=== PATIENT | male | born 1940 | race Caucasian/White ===

== ENCOUNTER 2019-07-07 13:11 | Outpatient (RCR) | payer OTHER, SELFPAY | END 2019-07-11 23:59 | disposition home or self-care (01) | LOC: SPT 13:11 | PROVIDERS: Family Provider Internal Medicine; PCP Internal Medicine; Referring Provider Internal Medicine; Visit Provider Internal Medicine | DX: M51.36 Other intervertebral disc degeneration, lumbar region (principal) | CPT/HCPCS: 97110; 97162 ==

== ENCOUNTER 2019-07-14 06:00 | Outpatient (RCR) | payer OTHER, SELFPAY | END 2019-08-09 23:59 | disposition home or self-care (01) | LOC: SPT 06:00 | PROVIDERS: Family Provider Internal Medicine; PCP Internal Medicine; Referring Provider Internal Medicine; Visit Provider Internal Medicine | DX: M51.36 Other intervertebral disc degeneration, lumbar region (principal) | CPT/HCPCS: 97110 ==

== ENCOUNTER 2019-08-10 06:00 | Outpatient (RCR) | payer OTHER, SELFPAY | END 2019-09-09 23:59 | disposition home or self-care (01) | LOC: SPT 06:00 | PROVIDERS: Family Provider Internal Medicine; PCP Internal Medicine; Referring Provider Internal Medicine; Visit Provider Internal Medicine | DX: M51.36 Other intervertebral disc degeneration, lumbar region (principal) | CPT/HCPCS: 97110 ==

== ENCOUNTER 2022-09-21 21:01 | Inpatient (IN) | payer OTHER, SELFPAY ==
[2022-09-21 21:10] VITALS: BP 130/65; PULSE 55; RESP 18; TEMP 37.1; O2SAT 95; BMI 45.6
--- NOTE | 2022-09-21 21:11 | ED_ITS ---
HPI - Syncope General: Chief Complaint: Syncope Stated Complaint: SYNCOPAL EPISODE Time Seen by Provider: 09/21/22 21:10 History of Present Illness: Mr. Sampson is an 82-year-old gentleman on Eliquis presenting to the emergency department for syncopal episode. He reports over the past few days having a atraumatic bruise on his inner thigh of unclear etiology but otherwise feels nor mal. He was in the shower and felt lightheaded. He laid down in the shower and lost consciousness. EMS found the patient to be diaphoretic and pale. He does also endorse some chest pain off and on. Intensity symptoms is moderate. Course has persisted. Denies frequent similar episodes in the past. No other specific changes in health, exacerbating, or alleviating factors identified. Onset (ago): minute(s) Prodromal symptoms: lightheaded Witnessed: No Injuries sustained associated with event: none Associated symptoms: Reports chest pain, lightheadedness and other Review of Systems General: Reports: 10 or more systems reviewed and unremarkable except in HPI and below Card: Reports: chest pain and lightheadedness PFS ED PFSH: Medical History A-fib CAD (coronary artery disease) Diabetes Hypertension Surgical History Hx of CABG Social History Smoking and tobacco status: never smoked Physical Exam Const: COMMON NORMALS: alert GENERAL APPEARANCE: cooperative and well developed HENMT: COMMON NORMALS: normocephalic and atraumatic HEAD & SCALP: normocephalic and atraumatic OTHER: No salazar signs or raccoon eyes. No hemotympanum. No otorrhea or rhinorrhea. Jaw alignment normal. Dentition baseline. No obvious bony step-offs. No septal hematoma. No evidence of ocular entrapment. Eye: COMMON NORMALS: conjunctivae normal CONJUNCTIVA: Yes conjunctivae normal SCLERA: sclerae normal Neck/C-Spine: COMMON NORMALS: supple GENERAL: Yes trachea midline Resp: COMMON NORMALS: clear to auscultation bilaterally EFFORT & INSPECTION: Yes able to speak in complete sentences AUSCULTATION: clear to auscultation bilaterally Cardio: RATE: bradycardic RHYTHM: abnormal rhythm irregularly irregular GI: COMMON NORMALS: Soft to palpation PALPATION: Yes Soft to palpation and No Tenderness to palpation present (GI) Extremity: NARRATIVE EXTREMITY EXAM: Medial right thigh ecchymosis GENERAL: Yes normal exam except as noted and No edema Neuro: COMMON NORMALS: moves all extremities SENSORIUM/ORIENTATION: Yes alert and No Orientation impaired Psych: COMMON NORMALS: mental status grossly normal and Normal thought process present THOUGHT PROCESS: Normal thought process present Course Vital Signs: Vital signs: Vital Signs Temperature 98.5 F 09/28/22 12:00 Pulse Rate 73 09/28/22 12:00 Respiratory Rate 15 09/28/22 12:00 Blood Pressure 143/78 09/28/22 12:00 Pulse Oximetry 95 09/28/22 12:00 Oxygen Delivery Me thod Room Air 09/28/22 12:00 Oxygen Flow Rate 2 09/27/22 19:39 MDM - Syncope Medical Decision Making 82-year-old male presenting due to syncopal episode and generalized weakness with intermittent lightheadedness. I did exam performed. He is nontoxic. EKG demonstrates atrial fibrillation with bradycardia, nonspecific interventricular conduction delay, no STEMI. Labs with minimal leukocytosis, normal hemoglobin and platelet count. Metabolic panel with mild hypokalemia and elevated creatinine likely baseline. Urinalysis pending. CT head with no acute traumatic injury. . No acute cervical fracture. Chronic findings discussed. Chest x-ray with no lobar consolidation or pneumothorax. Pelvis x-ray negative for fracture. No obstructing pathology identified on renal ultrasound. Patient treated with IV fluid bolus. Most likely allergy patient's symptoms is unspecified chest pain and a AFIA with syncope. The results of ED evaluation were discussed with the patient including plan for admission due to requirement for level of care not available if discharged to prevent significant worsening/deterioration. Patient agreeable with plan. Discussed with hospitalist service who was agreeable to admit patient. Medical Records I reviewed the patient's medical records. Lab Data I reviewed the patient's lab results. 09/28/22 04:09 09/28/22 04:09 Radiology Impressions Cervical Spine CT 09/21/22 21:32 IMPRESSION: No acute spine fracture-subluxation. Multilevel disc disease and chronic endplate/facet disease with spondylosis as described above. No significant central canal stenosis related to osseous elements. Head CT 09/21/22 21:32 IMPRESSION: 1. Nonspecific white matter changes as described which may be chronic. However clinical correlation is needed. Otherwise comparison prior study/follow-up exam may be helpful. 2. No acute intracranial findings otherwise. 3. Sinus findings as above. Hip/Pelvis X-Ray 09/21/22 21:32 IMPRESSION: 1. No acute findings. 2. If there is a strong clinical concern for an occult fracture, followup exam or CT/MRI correlation may also be considered. Renal Ultrasound 09/21/22 23:24 IMPRESSION: 1. Small right kidney with renal cortical thinning. 2. Bilateral simple renal cysts. 3. Nonobstructing 6.6 mm left renal calculus. 4. The patient was unable void there in the current examination. Aorta w/Runoff CTA 09/24/22 10:54 IMPRESSION: 1. Multi-vessel atherosclerotic disease with regions stenosis and occlusion as described in detail above. 2. Mild splenomegaly. 3. Colonic constipation is present. 4. Atrophic right kidney with scarring. Indeterminate cystic lesion at the lateral aspect of the right kidney midpole measures 2.4 cm in the transverse dimension and is stable from the prior study. Soft Tissue Ultrasound 09/25/22 17:00 IMPRESSION: 1. Approximate 3.5 x 5.5 x 11.5 cm hematoma in the right adductor longus muscle. In retrospect, this is unchanged or slightly smaller than on the CTA performed on 09/24/2022. Chest X-Ray 09/25/22 17:18 IMPRESSION: No acute findings. Laboratory Results WBC 10.1 10^3/uL (4.0-10.0) H 09/21/22 21:45 RBC 4.64 10^6/uL (4.1-5.3) 09/21/22 21:45 Hgb 13.7 g/dL (11.7-16.6) 09/21/22 21:45 Hct 42.7 % (42.0-52.0) 09/21/22 21:45 MCV 92.0 fl (80-94) 09/21/22 21:45 MCH 29.5 pg (28.0-34.0) 09/21/22 21:45 MCHC 32.1 g/dL (30.0-36.0) 09/21/22 21:45 RDW 14.8 % (12.1-15.1) 09/21/22 21:45 Plt Count 184 10^3/cmm (130-400) 09/21/22 21:45 MPV 9.3 fL (7.4-10.4) 09/21/22 21:45 Neut % (Auto) 84.6 % 09/21/22 21:45 Lymph % (Auto) 8.4 % 09/21/22 21:45 [place] % (Auto) 4.8 % 09/21/22 21:45 Eos % (Auto) 1.0 % 09/21/22 21:45 Baso % (Auto) 0.3 % 09/21/22 21:45 Neut # (Auto) 8.52 10^3/uL (1.8-7.7) H 09/21/22 21:45 Lymph # (Auto) 0.9 10^3/uL (0.8-4.8) 09/21/22 21:45 [place] # (Auto) 0.5 10^3/uL (0.2-0.9) 09/21/22 21:45 Eos # (Auto) 0.1 10^3/uL (0.0-0.8) 09/21/22 21:45 Baso # (Auto) 0.0 10^3/uL (0.0-0.1) 09/21/22 21:45 Nucleated RBC % (auto) 0 % 09/21/22 21:45 Nucleated RBCs # 0.0 /100WBC 09/21/22 21:45 D-Dimer 1.85 ug/mIFEU (0-0.59) H 09/21/22 21:45 Sodium 139 mmol/L (136-145) 09/21/22 21:45 Potassium 5.3 mmol/L (3.5-5.1) H 09/21/22 21:45 Chloride 104 mmol/L (98-107) 09/21/22 21:45 Carbon Dioxide 24 mmol/L (22-29) 09/21/22 21:45 Anion Gap 16.3 (5-19) 09/21/22 21:45 BUN 34 mg/dL (8-23) H 09/21/22 21:45 Creatinine 2.0 mg/dL (0.7-1.2) H 09/21/22 21:45 GFR Calculation Not Reportable 09/21/22 21:45 Glucose 103 mg/dL (65-115) 09/21/22 21:45 POC Glucose 93 mg/dL (70-110) 09/21/22 22:36 Calculated Osmolality 296 mOsm/kg (285-295) H 09/21/22 21:45 Calcium 8.8 mg/dL (8.5-10.5) 09/21/22 21:45 Magnesium 2.6 mg/dL (1.7-2.3) H 09/21/22 21:45 Total Bilirubin 0.4 mg/dL (0.15-1.2) 09/21/22 21:45 AST 24 U/L (0-40) 09/21/22 21:45 ALT 15 U/L (0-41) 09/21/22 21:45 Alkaline Phosphatase 116 U/L (40-130) 09/21/22 21:45 Troponin T Baseline 36 ng/L (0-15) H 09/21/22 21:45 Troponin T 120 Minute 31.19 ng/L (0-15) H 09/22/22 00:14 Delta Troponin T -4.81 ABS# (0-10) L 09/22/22 00:14 Total Protein 7.0 g/dL (6.6-8.7) 09/21/22 21:45 Albumin 4.0 g/dL (3.5-5.2) 09/21/22 21:45 Globulin 3.0 g/dL (1.3-4.6) 09/21/22 21:45 TSH 3.54 uIU/mL (0.27-4.20) 09/21/22 21:45 Discharge Plan Discharge Patient Disposition: Admitted As Inpatient Admit Provider: Gaby Rebollar Clinical Impression: Syncope, AFIA (acute kidney injury) Condition: Stable Discharge Diet: Cardiac Discharge Activity: Resume usual activity Coding Level of Care Code ED Bolt Sorter for Cristopher Isaac
--- NOTE | 2022-09-21 21:32 | XRR_ITS ---
PROCEDURE INFORMATION: Exam: XR Right Hip Exam date and time: 09/21/2022 10:16 PM Age: 82 years old Clinical indication: Hip pain; Right hip; Additional info: Contusion, syncope TECHNIQUE: Imaging protocol: Radiologic exam of the right hip. Views: 1 view hip with pelvis when performed. COMPARISON: CT abdomen pelvis w con* [id number] 12/21/2015 8:06 AM FINDINGS: Tubes, catheters and devices: Multiple surgical clips in the pelvic region. Bones/joints: Two nonweightbearing views submitted. No acute fracture dislocation. 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 Soft tissues: Unremarkable. Vasculature: Vascular calcifications. XR/XR hip RT 2-3V wo/w pel* [id number] IMPRESSION: 1. No acute findings. 2. If there is a strong clinical concern for an occult fracture, followup exam or CT/MRI correlation may also be considered.
--- NOTE | 2022-09-21 21:32 | CTR_ITS ---
PROCEDURE INFORMATION: Exam: CT Head Without Contrast Exam date and time: 09/21/2022 10:08 PM Age: 82 years old Clinical indication: Syncope and collapse; Patient HX: PT had near syncopal episode while standing in the shower this evening. Denies falling. Diaphoretic. TECHNIQUE: Imaging protocol: Computed tomography of the head without contrast. Radiation optimization: All CT scans at this facility use at least one of these dose optimization techniques: automated exposure control; mA and/or kV adjustment per patient size (includes targeted exams where dose is matched to clinical indication); or iterative reconstruction. REPORTING DATA: Count of CT and Cardiac NM exams in prior 12 months: This patient has received [address] and 0 known cardiac nuclear medicine studies in the 12 months prior to the current study. COMPARISON: No relevant prior studies available. RADIATION DOSE METRICS: Total DLP (mGy-cm): 1167.68 FINDINGS: Brain: Mild periventricular and patchy white matter hypodense changes, most likely related to chronic microvascular ischemic disease or other nonspecific white matter disease. Tiny hypodense focus in left basal ganglia, probably related to chronic lacunar infarct. Mild brain parenchymal atrophy. No hemorrhage. No mass effect or midline shift. Cerebral ventricles: No pathologic hydrocephalus. Paranasal sinuses: Trace amount of fluid/debris in right maxillary sinus. Mastoid air cells: Visualized mastoid air cells are well aerated. Bones/joints: Unremarkable. No acute fracture. Soft tissues: Unremarkable. CT/CT head wo con* [id number] IMPRESSION: 1. Nonspecific white matter changes as described which may be chronic. However clinical correlation is needed. Otherwise comparison prior study/follow-up exam may be helpful. 2. No acute intracranial findings otherwise. 3. Sinus findings as above.
--- NOTE | 2022-09-21 21:32 | CTR_ITS ---
PROCEDURE INFORMATION: Exam: CT Cervical Spine Without Contrast Exam date and time: 09/21/2022 10:08 PM Age: 82 years old Clinical indication: Other: Syncope; Patient HX: PT had near syncopal episode while standing in the shower this evening. Denies falling. Diaphoretic. TECHNIQUE: Imaging protocol: Computed tomography of the cervical spine without contrast. Radiation optimization: All CT scans at this facility use at least one of these dose optimization techniques: automated exposure control; mA and/or kV adjustment per patient size (includes targeted exams where dose is matched to clinical indication); or iterative reconstruction. REPORTING DATA: Count of CT and Cardiac NM exams in prior 12 months: This patient has received [address] and 0 known cardiac nuclear medicine studies in the 12 months prior to the current study. COMPARISON: No relevant prior studies available. RADIATION DOSE METRICS: Total DLP (mGy-cm): 277.9 FINDINGS: Bones/joints: Multilevel endplate/uncovertebral osteophytes and facet arthropathy are noted. No acute spine fracture or subluxation. Moderate C5-C6 and severe C6-C7 disc space narrowing. C2-C3: No significant disc bulge or herniation. No severe spinal canal stenosis. No significant neural foraminal narrowing. C3-C4: No significant disc bulge or herniation. No severe spinal canal stenosis. No significant neural foraminal narrowing. C4-C5: No significant disc bulge or herniation. No severe spinal canal stenosis. Moderate-severe left neural foraminal narrowing. C5-C6: No significant disc bulge or herniation. No severe spinal canal stenosis. Moderate-severe left and moderate right neural foraminal narrowing. C6-C7: No significant disc bulge or herniation. No severe spinal canal stenosis. Severe left and moderate-severe right neural foraminal narrowing. C7-T1: No significant disc bulge or herniation. No severe spinal canal stenosis. No significant neural foraminal narrowing. Lungs: Lung apices are normal. Vasculature: Diffuse carotid vascular calcification. Soft tissues: Unremarkable. CT/CT cervical spin wo con* [id number] IMPRESSION: No acute spine fracture-subluxation. Multilevel disc disease and chronic endplate/facet disease with spondylosis as described above. No significant central canal stenosis related to osseous elements.
--- NOTE | 2022-09-21 21:32 | XRR_ITS ---
PROCEDURE INFORMATION: Exam: XR Chest Exam date and time: 09/21/2022 10:16 PM Age: 82 years old Clinical indication: Other: Syncope; Prior surgery TECHNIQUE: Imaging protocol: Radiologic exam of the chest. Views: 1 view. COMPARISON: CT cervical spin wo con* [id number] 09/21/2022 10:08 PM FINDINGS: Lungs: Cardiac silhouette size/mediastinal contour, and vascularity are somewhat accentuated, likely related to poor inspiration/expansion however clinical correlation for mild CHF should be obtained. Follow-up upright PA lateral views may be helpful if clinically indicated. Upper lungs are clear. Lung bases are suboptimally assessed. Pleural spaces: No pleural effusion. No pneumothorax. Heart/Mediastinum: As above. Bones/joints: Sternotomy wires and CABG clips. No acute osseous findings. Other findings: Single view was submitted. XR/XR chest 1V portable [id number] IMPRESSION: 1. Accentuated cardiac silhouette size, mediastinal contour and vascularity. See discussion above. 2. No obvious acute consolidation. Suboptimal lung base assessment. Followup including lateral view may be obtained if clinically indicated.
--- NOTE | 2022-09-21 21:33 | ECG_ITS ---
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 Measurements Intervals [place] Rate: 51 P: 0 FL: 0 QRS: 56 QRSD: 106 T: 81 QT: 433 QTc: 400 Interpretive Statements ATRIAL FIBRILLATION WITH SLOW VENTRICULAR RESPONSE INCOMPLETE RIGHT BUNDLE BRANCH BLOCK [90+ ms QRS DURATION, TERMINAL R IN V1/V2, 40+ ms S IN I/aVL/V4/V5/V6] ABNORMAL RHYTHM ECG Compared to ECG 12/21/2015 07:27:52 Incomplete right bundle-branch block now present Sinus bradycardia no longer present Electronically Signed On 09-22-2022 13:51:55 CDT by Samson Brock M.D. [id number]
[2022-09-21 21:42] VITALS: PULSE 53; RESP 18; O2SAT 88
[2022-09-21 21:54] LABS: Basophils % 0.3 %; Eosinophils # 0.1 10^3/uL (0.0-0.8); Hematocrit 42.7 % (42.0-52.0); Hemoglobin 13.7 g/dL (11.7-16.6); Lymphocytes # 0.9 10^3/uL (0.8-4.8); Lymphocytes % 8.4 %; Mean Corpuscular HGB Conc 32.1 g/dL (30.0-36.0); Mean Corpuscular Hemoglobin 29.5 pg (28.0-34.0); Mean Platelet Volume 9.3 fL (7.4-10.4); Monocytes # 0.5 10^3/uL (0.2-0.9); Monocytes % 4.8 %; Neutrophils # 8.52 10^3/uL (1.8-7.7); Neutrophils % 84.6 %; Nucleated Red Blood Cells % 0 %; Platelet Count 184 10^3/cmm (130-400); Red Blood Count 4.64 10^6/uL (4.1-5.3); Red Cell Distribution Width 14.8 % (12.1-15.1); White Blood Count 10.1 10^3/uL (4.0-10.0)
[2022-09-21 22:00] VITALS: BP 124/66; PULSE 53; RESP 20; O2SAT 85
[2022-09-21 22:09] LABS: D Dimer 1.85 ug/mIFEU (0-0.59)
[2022-09-21 22:14] LABS: Troponin(5th) Baseline 36 ng/L (0-15)
[2022-09-21 22:22] LABS: Alanine Aminotransferase 15 U/L (0-41); Alkaline Phosphatase 116 U/L (40-130); Aspartate Amino Transferase 24 U/L (0-40); Blood Urea Nitrogen 34 mg/dL (8-23); Calcium 8.8 mg/dL (8.5-10.5); Carbon Dioxide 24 mmol/L (22-29); Chloride 104 mmol/L (98-107); Glucose 103 mg/dL (65-115); Magnesium 2.6 mg/dL (1.7-2.3); Osmolality Calculated 296 mOsm/kg (285-295); Sodium 139 mmol/L (136-145); Thyroid Stimulating Hormone 3.54 uIU/mL (0.27-4.20); Total Bilirubin 0.4 mg/dL (0.15-1.2)
[2022-09-21 22:23] LABS: Anion Gap 16.3 (5-19); Potassium 5.3 mmol/L (3.5-5.1)
[2022-09-21 22:30] VITALS: BP 144/72; PULSE 60; RESP 21; O2SAT 89
[2022-09-21 23:00] VITALS: BP 144/72; PULSE 61; RESP 12; O2SAT 90
--- NOTE | 2022-09-21 23:24 | USR_ITS ---
PROCEDURE INFORMATION: Exam: US Retroperitoneal; Complete; Kidneys and Bladder Exam date and time: 09/21/2022 11:42 PM Age: 82 years old Clinical indication: Other: Omar; Prior surgery; Surgery type: Prostatectomy 2008 TECHNIQUE: Imaging protocol: Real-time ultrasound of the retroperitoneum with image documentation. Complete exam focused on the kidneys and bladder. COMPARISON: CT abdomen pelvis w con* [id number] 12/21/2015 8:06 AM FINDINGS: Right kidney: Right kidney measures 7.6 cm craniocaudal dimension. The renal cortex measures 8 mm. There are 2 anechoic cystic mass seen on the lateral aspect of the right kidney, the largest measures 1.6 cm compatible with simple cysts. No stones. No hydronephrosis. Left kidney: Left kidney measures 10.7 cm craniocaudal dimension. The renal cortex measures 2.1 cm. An anechoic cystic mass seen on the upper pole of the left kidney measuring 2.4 cm. A hyperechoic focus exhibiting acoustic shadowing is seen in the left kidney lower pole measuring 6.6 mm. Urinary bladder: Prevoid volume 252 mL. Patient was unable to void during the current examination. Other findings: No hydronephrosis. US/US renal BI* [id number] IMPRESSION: 1. Small right kidney with renal cortical thinning. 2. Bilateral simple renal cysts. 3. Nonobstructing 6.6 mm left renal calculus. 4. The patient was unable void there in the current examination.
[2022-09-21 23:30] VITALS: BP 144/72; PULSE 64; RESP 18; O2SAT 87
--- NOTE | 2022-09-21 23:37 | ECG_ITS ---
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 Measurements Intervals [place] Rate: 59 P: 0 PA: 0 QRS: 62 QRSD: 102 T: 84 QT: 405 QTc: 402 Interpretive Statements ATRIAL FIBRILLATION WITH SLOW VENTRICULAR RESPONSE POSSIBLE RIGHT VENTRICULAR CONDUCTION DELAY [RSR (QR) IN V1/V2] SEPTAL MYOCARDIAL INFARCTION , OF INDETERMINATE AGE [40+ ms Q WAVE IN V1/V2] Compared to ECG 09/21/2022 21:37:51 Myocardial infarct finding now present Incomplete right bundle-branch block no longer present Electronically Signed On 09-22-2022 13:54:53 CDT by Samson Brock M.D. [id number]
[2022-09-22] VITALS (44 sets, daily range): BP systolic 121–166; BP diastolic 52–77; PULSE 59–73; RESP 12–25; TEMP 36.5–36.9; O2SAT 83–96
[2022-09-22] MEDS: sodium chloride 0.9% 1,000 ML 999 ML IV (00:26)
[2022-09-22 00:42] LABS: Troponin 5 2HR 31.19 ng/L (0-15)
[2022-09-22 00:46] LABS: Troponin 5 2HR Delta -4.81 ABS# (0-10)
--- NOTE | 2022-09-22 02:48 | USCV_ITS ---
Andrez Olvera Age: 82 Gender: M : 1940 Exam Date: 09/22/2022 03:04 Ordering Phys: Gaby Rebollar MD Technologist: NANETTE [place] [facility] [place]: syncope. s/p CABG 1999 BP: 145 / 72 HR: 61 Rhythm: Atrial fibrillation Technical Quality: Adequate with [employer] MEASUREMENTS (Male / Female) Normal Values 2D ECHO LV Diastolic Diameter PLAX 4.5 cm 4.2 - 5.9 / 3.9 - 5.3 cm LV Systolic Diameter PLAX 3.0 cm IVS Diastolic Thickness 1.5 cm 0.6 - 1.0 / 0.6 - 0.9 cm IVS Systolic Thickness 1.8 cm LVPW Diastolic Thickness 1.4 cm 0.6 - 1.0 / 0.6 - 0.9 cm LVPW Systolic Thickness 1.1 cm LVOT Diameter 1.9 cm LV Ejection Fraction 2D Teich 62.3 % LV Ejection Fraction MOD 2C 65.1 % LV Ejection Fraction 2C AL 66.6 % LA Diameter 5.3 cm LA Width 5.4 cm LA Height 6.7 cm RA Width 4.4 cm RA Height 5.9 cm Aorta at Sinotubular Diameter 2.8 cm IVC Diameter 2.2 cm M-MODE Aortic Annulus Diameter 2.6 cm LA Ao Ratio MM 2.2 MV E Point Septal Separation 0.3 cm DOPPLER AV Peak Velocity 144.0 cm/s LVOT Peak Velocity 103.0 cm/s AV Area Cont Eq vti 2.0 cm squared AV Area Cont Eq pk 2.1 cm squared MV Peak Velocity 146.0 cm/s MV Area PHT 3.5 cm squared MV E' Velocity 78.5 cm/s Mitral E to MV E' Ratio 11.1 Mitral E to LV E' Lateral Ratio 11.4 Mitral E to LV E' Septal Ratio 10.9 TR Peak Velocity 252.0 cm/s TR Peak Gradient 25.4 mmHg TV Peak E Velocity 66.0 cm/s Right Atrial Pressure 10.0 mmHg Pulmonary Artery Systolic Pressu 35.4 mmHg PV Peak Velocity 167.0 cm/s RV Acceleration Time 0.1 s RV Ejection Time 0.4 s RV AcT/ET 0.2 FINDINGS Left Ventricle Left ventricle is normal size. LV systolic function is normal with EF of 60 to 65%. No regional wall motion normalities are seen. Diastolic function is indeterminate because of atrial fibrillation. Right Ventricle Normal in size and function Right Atrium Normal in size Left Atrium Dilated. Mitral Valve Structurally normal mitral valve. Mild mitral regurgitation. Aortic Valve Aortic valve is thickened. No significant stenosis or regurgitation. Tricuspid Valve Mild tricuspid regurgitation. Pulmonary artery systolic pressure is 35 to 40 mmHg. This is consistent with mild pulmonary hypertension. Pulmonic Valve Not well-visualized. Pericardium Normal Aorta Normal in size IVC Appears to be dilated CONCLUSIONS LV systolic function is normal with EF of 60 to 65% Diastolic function is indeterminate because of atrial fibrillation. Left atrial dilation Mild mitral regurgitation Mild tricuspid regurgitation Mild pulmonary hypertension No comparison studies are available. Samson Brock MD (Electronically Signed) Final Date: 22 September 2022 09:54 S
--- NOTE | 2022-09-22 02:50 | P.HP_ITS ---
Providers/Chief Complaint Admitting Physician: Gaby Rebollar MD Primary Care Provider: Greg Medeiros DO Chief Complaint: SYNCOPAL EPISODE History of Present Illness Andrez Olvera is a 82 year old male with past medical history of falls, COPD, chronic anticoagulation, CABG, diabetes, hypertension presented to the hospital today after falling in the shower. He states he has been having issues with his right leg ever since he fell while doing yard work. He says he has a black spot on his leg which is in fact a bruise after I examined him. He is on warfarin at home. 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 He says ever since then he has been having trouble stabilizing himself. He says the fall was completely mechanical. However because he fell and hit his head that he became dizzy. He also states he has had 2-3 syncopal episodes in April. Denies any dizziness or headache prior to the episodes. Denies smoking or drinking alcohol. He has lost 40 pounds in the last 3 years but eats well but does not drink a lot of water. He says he can carry out all activities of daily living by himself and recently has started drinking more water. He has had bilateral knee replacement done in the past. Denies chest pain, shortness of breath, nausea, vomiting diarrhea at this time. ED course: On arrival 130/65, straight 18, pulse 55, saturating 95% on room air, temperature 98.7, WBC 10.1, hemoglobin 13.7, platelet 184, D-dimer 1.85, potassium 5.3, creatinine 2.0, magnesium 2.6, baseline troponin 36, 2-hour troponin 31.19. Delta troponin negative , Procalcitonin 1.13, TSH 1.59. UA not suggestive of infection. EKG shows rate controlled atrial fibrillation. No acute ischemic changes noted. Renal ultrasound showed small right kidney with renal cortical thinning, bilateral simple renal cysts, nonobstructing 6.6 mm left renal calculus Hip pelvis x-ray shows no acute finding CT head shows nonspecific white matter changes as described which may be chronic. No acute intracranial findings otherwise Chest x-ray shows accentuated cardiac silhouette size mediastinal contour and vascularity, no obvious acute consolidation, suboptimal lung base assessment No acute spine fracture or subluxation. Multilevel disc disease and chronic endplate facet disease with spondylosis as described above no significant central canal stenosis related to osseous elements. Medications/Allergies Home Medications Medication Instructions Recorded Confirmed Last Taken Type albuterol sulfate 90 mcg/actuation 1 inh inhalation Q4H 08/30/20 09/22/22 Unknown History breath activated powder inhaler,sensor amlodipine 10 mg tablet 10 mg PO DAILY 08/30/20 09/22/22 09/21/22 08:00 History apixaban 2.5 mg tablet 2.5 mg PO BID 08/30/20 09/22/22 09/21/22 17:00 History aspirin 81 mg tablet,delayed 81 mg PO DAILY 08/30/20 09/22/22 09/21/22 08:00 History release cyclobenzaprine 10 mg tablet 10 mg PO TID PRN muscle spasms 08/30/20 09/22/22 Unknown History isosorbide mononitrate 30 mg 30 mg PO DAILY 08/30/20 09/22/22 09/21/22 08:00 History tablet,extended release 24 hr omeprazole 20 mg capsule,delayed 20 mg PO DAILY 08/30/20 09/22/22 09/21/22 08:00 History release spironolactone 25 mg tablet 50 mg PO DAILY 08/30/20 09/22/22 09/21/22 08:00 History ropinirole 1 mg tablet 1 mg PO BEDTIME 09/22/22 09/22/22 09/21/22 20:00 History tramadol 50 mg tablet 50 mg PO Q6H PRN pain 09/22/22 09/22/22 Unknown History Allergies Allergy/AdvReac Type Severity Reaction Status Date / Time lovastatin Allergy rash Verified 09/19/21 12:28 PFSH Acute PFSH: Social History Smoking and tobacco status: never smoked Vitals/I&O/Wt Last Vital Signs Temp 97.7 F 09/22/22 01:06 Pulse 59 L 09/22/22 01:41 Resp 22 H 09/22/22 01:41 BP 145/72 09/22/22 01:41 Pulse Ox 94 09/22/22 01:41 O2 Del Method Room Air 09/22/22 01:06 Weight last 48 hrs Weight 136.078 kg Physical Exam Narrative: General: Alert oriented x3, patient seen laying in bed appearing comfortable at this time HEENT: Normocephalic, atraumatic, EOMI, no acute respiratory Cardio: Regular rate rhythm, normal S1-S2, Respiratory: To auscultation bilaterally no wheezes no rhonchi GI: Abdomen soft, nontender, bowel sounds + Extremities: No edema noted bilateral lower extremities, right medial thigh does have a area of ecchymosis however no fluctuance noted. Data 09/21/22 21:45 09/21/22 21:45 A&P Assessment and plan (1) Syncope: (2) AFIA (acute kidney injury): (3) Contusion of left ear: (4) Hx of CABG: (5) CAD (coronary artery disease): (6) Hyperkalemia: (7) Hypertension: (8) Diabetes: Plan #Syncope #Frequent falls #AFIA on CKD, baseline unknown #Hyperkalemia #Atrial fibrillation, rate controlled #Chronically anticoagulated with Coumadin #Hypertension #Diabetes mellitus #History of CABG, coronary artery disease ? Recheck labs in a.m. CBC, CMP, magnesium ? Keep potassium above 4 and magnesium above 2 ? Continue amlodipine, aspirin, omeprazole ? Hold spironolactone at this time ? Continue Imdur ? Check echo ? Placed on cardiac telemetry to rule out occult arrhythmia ? Patient may require a event monitor at discharge ? Cardiology follow-up at discharge ? Continue patient on normal saline 100 cc/h ? He did appear dehydrated. AFIA may be related to prerenal cause dehydration ? Check PT/INR ? I suggest we call his pharmacy to confirm his home medications since he states he is on Coumadin however he is confirmed with nursing staff that he is apparently on Eliquis. -D-dimer is elevated. Consider VQ scan. Place on fall precautions Consider ultrasound thigh check orthostatic vitals Full code SCDs, patient on Coumadin Attestations Medical Necessity Statement*: > 2 midnight stay for management and workup of syncope and afia Other Coding Information Focused coding review requested Diagnoses Syncope R55 AFIA (acute kidney injury) N17.9 Contusion of left ear S00.432A Hx of CABG Z95.1 CAD (coronary artery disease) I25.10 Hyperkalemia E87.5 Hypertension I10 Diabetes E11.9
[2022-09-22] MEDS: sodium chloride 0.9% 1,000 ML 75 ML IV (03:59)
[2022-09-22 04:36] LABS: Add Urine Culture? No; Add Urine Microscopic? YES; Bacteria Urine TRACE /hpf; Bilirubin Urine Neg (Negative); Blood Urine Neg (Negative); Glucose Urine UA Norm (Normal); Ketones Urine Negative (Negative); Leukocyte Esterase Urine Negative (Negative); Nitrate Urine Negative (Negative); Protein Urine 3+ (Negative); RBC Urine 0-4 /hpf (0-2); Squamous Epithelial Cell Urine 0-4 /hpf (0-5); Urine Appearance Clear (CLEAR); Urine Color Yellow (Yellow); Urobilinogen Urine Norm (Negative); WBC Urine 0-4 /hpf (0-5); pH Urine 5 (5-7)
[2022-09-22 05:04] LABS: Troponin 5 6HR 26.45 ng/L (0-15)
[2022-09-22 05:06] LABS: Troponin 5 6HR Delta -9.55 ng/L (0-12)
--- NOTE | 2022-09-22 05:08 | ECG_ITS ---
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 Measurements Intervals [place] Rate: 66 P: 0 [place]: 0 QRS: 52 QRSD: 99 T: 61 QT: 374 QTc: 392 Interpretive Statements ATRIAL FIBRILLATION INCOMPLETE RIGHT BUNDLE BRANCH BLOCK [90+ ms QRS DURATION, TERMINAL R IN V1/V2, 40+ ms S IN I/aVL/V4/V5/V6] SEPTAL MYOCARDIAL INFARCTION , PROBABLY OLD [40+ ms Q WAVE IN V1/V2] Compared to ECG 09/21/2022 23:37:00 Incomplete right bundle-branch block now present Myocardial infarct finding still present Electronically Signed On 09-22-2022 13:53:48 CDT by Samson Brock M.D. [id number]
[2022-09-22 05:19] LABS: Thyroid Stimulating Hormone 1.59 uIU/mL (0.27-4.20)
[2022-09-22 05:47] LABS: Procalcitonin 0.13 ng/mL (0-0.5)
[2022-09-22 08:23] LABS: Basophils % 0.3 %; Eosinophils # 0.1 10^3/uL (0.0-0.8); Eosinophils % 1.4 %; Hematocrit 36.1 % (42.0-52.0); Hemoglobin 11.6 g/dL (11.7-16.6); Lymphocytes # 1.2 10^3/uL (0.8-4.8); Lymphocytes % 14.8 %; Mean Corpuscular HGB Conc 32.1 g/dL (30.0-36.0); Mean Corpuscular Hemoglobin 30.1 pg (28.0-34.0); Mean Corpuscular Volume 93.8 fl (80-94); Mean Platelet Volume 9.4 fL (7.4-10.4); Monocytes # 0.6 10^3/uL (0.2-0.9); Monocytes % 7.2 %; Neutrophils # 6.03 10^3/uL (1.8-7.7); Neutrophils % 75.7 %; Nucleated Red Blood Cells % 0 %; Platelet Count 159 10^3/cmm (130-400); Red Blood Count 3.85 10^6/uL (4.1-5.3)
[2022-09-22 08:34] LABS: INR 1.14 (0.8-1.2)
[2022-09-22 08:39] LABS: Anion Gap 15.3 (5-19); Blood Urea Nitrogen 31 mg/dL (8-23); Calcium 8.1 mg/dL (8.5-10.5); Carbon Dioxide 22 mmol/L (22-29); Chloride 109 mmol/L (98-107); Glucose 120 mg/dL (65-115); Osmolality Calculated 300 mOsm/kg (285-295); Potassium 5.3 mmol/L (3.5-5.1); Sodium 141 mmol/L (136-145)
[2022-09-22] MEDS: aspirin 81 mg EC Tablet PO (08:55)
[2022-09-22] MEDS: isosorbide mononitrate ER 30 mg Tablet PO (08:55)
[2022-09-22] MEDS: amlodipine 10 mg Tablet PO (08:55)
[2022-09-22] MEDS: pantoprazole DR 40 mg Tablet PO (08:55)
--- NOTE | 2022-09-22 10:57 | PC.CHAP ---
Pastoral Care Encounter/Spiritual Assessment Type of Contact [] Declined reagent tender visit [] Patient/Family/Request visit [] Outpatient visit [] Follow-up visit [] Physician referral [] Code/Alert [x] Routine visit [] Staff referral [] Actively dying [] Patient sleeping [x] Family support [] [] Out of room [] Palliative care [] [] Receiving care in room [] Pre-surgical visit [] Trauma [] Long length of stay [] ICU visit [] Other: Relational/Emotional Strength []x Patient feels connected with others/family/visitors/staff [] Distress [] Loneliness/isolation [] Abandonment Spirituality of Patient [x] Person of [place] [x Attends Cheondoism of their [place] [x Believes in Prayer [] Reads Bible or Episcopal materials [] There are Spiritual issues to be addressed Electrotype Finisher Interventions [x] Prayer [x] Active listening [x Non-anxious presence [] Spiritual/emotional support [] Crisis/trauma care [] Spiritual counseling [] Bereavement support [] Provided bereavement packet [] Provided Bible/devotional materials [] Provided toy/stuffed animal, coloring book to patient or family member [] Provided Communion [] Anointing/[place] [] Salvation [x] Completed spiritual assessment [] Other: Impact on Illness or Injury [] Angry [] Fearful [] Anxious [] Often cries [] Exhaustion [] Unable to work [] Unable to attend taoism [] Unable to walk/stand [] Unable to read [] Unable to drive [] Unable to eat/drink [] Unable to sleep [] Unable to be with family [] Patient intubated [] Other: Summary Time spent with patient 10 min
--- NOTE | 2022-09-22 11:19 | USCV_ITS ---
May Andrez Age: 82 Gender: M : 1940 Exam Date: 09/22/2022 16:01 Ordering Phys: Hans Hooper MD Technologist: ANA [place] [facility] [place]: pad Risk Factors: Previous Vascular Surgery: RIGHT LEFT BP: 166.0 / 75.00 BP: 160.0/ 80.00 0 0 Waveform Velocity (cm/s) Velocity (cm/s) Waveform Biphasic 181.8 Iliac Prox 190.8 Biphasic Biphasic 119.6 Iliac Mid 134.7 Biphasic Biphasic Iliac Distal Biphasic 122.3 124.3 Biphasic 103.9 VEHICLE OPERATOR TECHNICIAN 129.0 Biphasic Biphasic 126.2 SFA Prox 144.5 Biphasic Biphasic 126.2 SFA Mid 104.1 Biphasic Biphasic 78.5 SFA Dist 76.9 Biphasic Biphasic 63.7 POP 81.2 Biphasic Monophasic 29.0 REAL ESTATE EXECUTIVE ASSISTANT 145.9 Biphasic Monophasic 455.7 DPA 29.2 Monophasic 0.9 SUMMER 0.9 FINDINGS Resting SUMMER 0.9 bilaterally Mild diffuse plaque in the iliac and femoral arteries bilaterally Markedly elevated Doppler velocity in the right dorsalis pedis artery with abnormal Doppler waveforms CONCLUSIONS 1. Slightly diminished resting SUMMER bilaterally, suggestive of mild peripheral artery disease 2. Markedly elevated velocity in the right dorsalis pedis artery, suggestive of greater than 60% stenosis. 3. Elevated velocity in the left posterior tibial artery, may suggest hemodynamically significant stenosis Consider exercise SUMMER, to better evaluate the functional significance, if clinically indicated Dr Frank Sr MD FAC (Electronically Signed) Final Date: 23 September 2022 20:15 S
--- NOTE | 2022-09-22 11:21 | USCV_ITS ---
May Andrez Age: 82 Gender: M : 1940 Exam Date: 09/22/2022 15:22 Ordering Phys: Hans Hooper MD Technologist: ANA Exam Location: [facility] [place] Indication: syncope Risk Factors: Previous Vascular Surgery: Right Brachial BP: 166 / 73 Left Brachial BP: 160 / 80 Right Left Velocity (cm/s) Spectral Plaque Velocity (cm/s) Spectral Plaque Syst/Diast Broadening Syst/Diast Broadening 91.95/ 9.20 Prox CCA 83.70 / 6.00 82.70/ 9.90 Mid CCA 104.20/ 11.10 79.40/ 13.20 Prox ICA 105.80/ 17.60 77.20/ 20.90 Mid ICA 69.70 / 17.70 75.00/ 11.00 Distal ICA 50.60 / 17.70 172.50 ECA 0.90 ICA/CCA 1.02 Antegrade Vertebral Antegrade 33.00/ 7.00 cm/s 61.00/ 16.00 cm/s Tri Subclavian Tri 101.0 128.0 0 0 FINDINGS Moderate to heterogenous plaques at the bifurcations and proximal internal carotid arteries bilaterally Antegrade flow in the vertebral arteries bilaterally Normal Doppler flow velocities in the vertebral arteries bilaterally. Velocities in the distal common carotids and left external carotid were not obtained CONCLUSIONS Moderate to heterogenous plaques at the bifurcations and proximal internal carotid arteries bilaterally, suggesting less than 50% stenosis. No significant stenosis in the vertebral or subclavian arteries based on the above findings Dr Frank Sr MD [facility] (Electronically Signed) Final Date: 23 September 2022 20:10 S
--- NOTE | 2022-09-22 14:12 | PM.PN ---
Subjective Subjective: Patient was seen and examined this morning, currently has denied chest pain palpitations shortness of breath, dizziness. Medications: Medication Review Details: Generic Name Dose Route Start Last Admin Trade Name Cheri PRN Reason Stop Dose Admin Amlodipine Besylat e 10 mg 09/22/22 09:00 09/22/22 08:55 Amlodipine 10 Mg Tablet PO 10 mg DAILY VENKAT Administration Aspirin 81 mg 09/22/22 09:00 09/22/22 08:55 Aspirin 81 Mg Ec Tablet PO 81 mg DAILY VENKAT Administration Sodium Chloride 1,000 mls @ 50 ml s/hr 09/22/22 11:30 09/22/22 12:25 Sodium Chloride 0.9% IV Not Given .Q20H VENKAT Isosorbide Mononit rate 30 mg 09/22/22 09:00 09/22/22 08:55 Isosorbide [place] itrate Er 30 Mg Ta blet PO 30 mg DAILY VENKAT Administration Pantoprazole Sodiu m 40 mg 09/22/22 09:00 09/22/22 08:[address] 40 Mg Tablet PO 40 mg DAILY VENKAT Administration Vitals/I&O/Wt Last Vital Signs Temp 97.9 F 09/22/22 05:32 Pulse 63 09/22/22 09:30 Resp 22 H 09/22/22 09:30 BP 166/77 09/22/22 09:30 Pulse Ox 91 09/22/22 09:30 O2 Del Method Room Air 09/22/22 08:24 09/21/22 09/22/22 09/22/22 22:59 06:59 14:59 Intake Total 1000 / 1000 1113.75 / 1113.75 Output Total 400 / 400 Balance 600 / 600 1113.75 / 1113.75 Weight last 48 hrs Weight 136.078 kg Physical Exam Const: COMMON NORMALS: patient oriented x3 HENMT: COMMON NORMALS: normocephalic and atraumatic HEAD & SCALP: normocephalic and atraumatic Resp: COMMON NORMALS: clear to auscultation bilaterally EFFORT & INSPECTION: Yes symmetric chest movement AUSCULTATION: clear to auscultation bilaterally Cardio: COMMON NORMALS: regular rate, regular rhythm, S1 normal heart sound present, S2 normal heart sound present, No gallops present (Cardio), No murmurs present (Cardio), No rub (Cardio) and Peripheral pulses 2+ throughout RATE: regular rate RHYTHM: regular rhythm HEART SOUNDS: S1 normal heart sound present and S2 normal heart sound present PERIPHERAL PULSES: Peripheral pulses 2+ throughout GI: COMMON NORMALS: Normal to inspection, nondistended, normoactive bowel sounds present, Soft to palpation, non-tender, No hepatosplenomegaly present and no masses AUSCULTATION: Yes normoactive bowel sounds PALPATION: Yes Soft to palpation and Yes No hepatosplenomegaly present RECTAL EXAM: Yes deferred Extremity: COMMON NORMALS: no clubbing, cyanosis or edema and no pedal edema Neuro: COMMON NORMALS: patient oriented x3 Data 09/22/22 08:00 09/22/22 08:00 Micro: Microbiology 09/22/22 04:34 Blood Culture - Preliminary Blood SPECIMEN COLLECTED 09/22/22 04:29 Blood Culture - Preliminary Blood SPECIMEN COLLECTED A&P Assessment and plan (1) Syncope: (2) AFIA (acute kidney injury): (3) Contusion of left ear: (4) Hx of CABG: (5) CAD (coronary artery disease): (6) Hyperkalemia: (7) Hypertension: (8) Diabetes: Plan Assessment #Syncope #Atrial fibrillation #Frequent falls #AFIA on CKD, baseline unknown #Hyperkalemia #Hypertension #Diabetes mellitus #History of CABG, coronary artery disease #Bilateral lower extremity pain with ambulation rule out possible PAD #Varicose vein Plan: 2D Echo : LV systolic function is normal with EF of 60 to 65%.Mild mitral regurgitation,?Mild tricuspid regurgitation Mild pulmonary hypertension. Follow arterial carotid Doppler. Follow lower extremity arterial duplex SUMMER Follow VQ scan Continue amlodipine, aspirin, omeprazole,imdur Hold spironolactone in view of hyperkalemia Continue Eliquis 2.5 mg p.o. twice daily LDSSI, monitor fingerstick glucose, Possible event monitor on discharge to rule out any underlying sick sinus syndrome/tachybradycardia syndrome. Continue normal saline at 50 cc an hour Monitor BMP Place on fall precautions check orthostatic vitals Full code DVT prophylaxis: Currently on Eliquis Attestations Medical Necessity Statement*: Patient is in hospital management of syncope. Coding Level of Care Code 45541 Diagnoses Syncope R55 AFIA (acute kidney injury) N17.9 Contusion of left ear S00.432A Hx of CABG Z95.1 CAD (coronary artery disease) I25.10 Hyperkalemia E87.5 Hypertension I10 Diabetes E11.9
[2022-09-22 17:02] LABS: Glucose Point of Care 228 mg/dL (70-110)
[2022-09-22] MEDS: insulin lispro 100 unit/1 mL SUBCUT (17:04)
[2022-09-22] MEDS: apixaban 5 mg Tablet 2.5 MG PO (17:04)
[2022-09-22] MEDS: sodium chloride 0.9% 1,000 ML 50 ML IV (17:57)
[2022-09-22] MEDS: ropinirole 1 mg Tablet PO (20:06)
[2022-09-22 21:10] LABS: Glucose Point of Care 197 mg/dL (70-110)
--- NOTE | 2022-09-22 23:44 | ECG_ITS ---
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 Measurements Intervals [place] Rate: 63 P: 0 [place]: 0 QRS: 65 QRSD: 113 T: 37 QT: 387 QTc: 398 Interpretive Statements ATRIAL FIBRILLATION INCOMPLETE RIGHT BUNDLE BRANCH BLOCK [90+ ms QRS DURATION, TERMINAL R IN V1/V2, 40+ ms S IN I/aVL/V4/V5/V6] SEPTAL MYOCARDIAL INFARCTION , PROBABLY OLD [40+ ms Q WAVE IN V1/V2] Compared to ECG 09/22/2022 05:08:57 No significant changes Electronically Signed On 09-23-2022 10:29:15 CDT by Samson Brock M.D. [id number]
[2022-09-22] MEDS: lidocaine 2% viscous 15 ML, aluminum-mag hydrox-simethicon 30 ML, sucralfate oral liq 1 GM PO (23:54)
[2022-09-23] VITALS (13 sets, daily range): BP systolic 116–151; BP diastolic 61–94; PULSE 58–72; RESP 15–24; TEMP 36.3–36.8; O2SAT 90–96
--- NOTE | 2022-09-23 00:02 | PC.NURSE ---
09/22/22 2330 - Pt co chest pain. States feels like same pain as when admitted. Per pt it is just under breast bone on R side, dull and tight with no radiation. VS taken and reported to MD Rebollar as well as pt presentation. To be noted on assessment there is a prominent rub vs. wheeze on RUL intermittently with inhalation that had not been there previously. New orders noted.
[2022-09-23 00:09] LABS: Troponin T (5th) Once 75 ng/L (0-15)
[2022-09-23 02:15] LABS: Basophils % 0.5 %; Eosinophils # 0.2 10^3/uL (0.0-0.8); Eosinophils % 3.8 %; Hematocrit 34.9 % (42.0-52.0); Hemoglobin 11.1 g/dL (11.7-16.6); Lymphocytes # 1.2 10^3/uL (0.8-4.8); Lymphocytes % 19.8 %; Mean Corpuscular HGB Conc 31.8 g/dL (30.0-36.0); Mean Corpuscular Hemoglobin 29.5 pg (28.0-34.0); Mean Corpuscular Volume 92.8 fl (80-94); Mean Platelet Volume 9.4 fL (7.4-10.4); Monocytes # 0.4 10^3/uL (0.2-0.9); Monocytes % 7.2 %; Neutrophils # 3.94 10^3/uL (1.8-7.7); Nucleated Red Blood Cells % 0 %; Platelet Count 155 10^3/cmm (130-400); Red Blood Count 3.76 10^6/uL (4.1-5.3); Red Cell Distribution Width 14.7 % (12.1-15.1); White Blood Count 5.8 10^3/uL (4.0-10.0)
--- NOTE | 2022-09-23 02:18 | ECG_ITS ---
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 Measurements Intervals [place] Rate: 57 P: 0 SD: 0 QRS: 58 QRSD: 106 T: 49 QT: 392 QTc: 385 Interpretive Statements ATRIAL FIBRILLATION WITH SLOW VENTRICULAR RESPONSE INCOMPLETE RIGHT BUNDLE BRANCH BLOCK [90+ ms QRS DURATION, TERMINAL R IN V1/V2, 40+ ms S IN I/aVL/V4/V5/V6] ABNORMAL RHYTHM ECG Compared to ECG 09/22/2022 23:44:14 Myocardial infarct finding no longer present Electronically Signed On 09-23-2022 10:32:16 CDT by Samson Brock M.D. [id number]
[2022-09-23 02:35] LABS: Alanine Aminotransferase 12 U/L (0-41); Albumin Level 3.2 g/dL (3.5-5.2); Alkaline Phosphatase 93 U/L (40-130); Anion Gap 13.1 (5-19); Aspartate Amino Transferase 16 U/L (0-40); Blood Urea Nitrogen 28 mg/dL (8-23); Calcium 7.9 mg/dL (8.5-10.5); Carbon Dioxide 24 mmol/L (22-29); Chloride 105 mmol/L (98-107); Globulin 2.2 g/dL (1.3-4.6); Glucose 175 mg/dL (65-115); Magnesium 2.3 mg/dL (1.7-2.3); Osmolality Calculated 294 mOsm/kg (285-295); Phosphorus 3.2 mg/dL (2.5-4.5); Potassium 5.1 mmol/L (3.5-5.1); Sodium 137 mmol/L (136-145); Total Bilirubin 0.3 mg/dL (0.15-1.2); Total Protein 5.4 g/dL (6.6-8.7)
[2022-09-23 02:48] LABS: Troponin 5 2HR 74.89 ng/L (0-15)
[2022-09-23 02:53] LABS: Troponin 5 2HR Delta -0.11 ABS# (0-10)
[2022-09-23 05:30] LABS: Troponin 5 6HR 77.45 ng/L (0-15)
[2022-09-23 05:31] LABS: Troponin 5 6HR Delta 2.45 ng/L (0-12)
--- NOTE | 2022-09-23 06:18 | ECG_ITS ---
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 Measurements Intervals [place] Rate: 59 P: 0 RI: 0 QRS: 63 QRSD: 105 T: 58 QT: 394 QTc: 392 Interpretive Statements ATRIAL FIBRILLATION WITH SLOW VENTRICULAR RESPONSE INCOMPLETE RIGHT BUNDLE BRANCH BLOCK [90+ ms QRS DURATION, TERMINAL R IN V1/V2, 40+ ms S IN I/aVL/V4/V5/V6] ABNORMAL RHYTHM ECG Compared to ECG 09/23/2022 01:35:56 No significant changes Electronically Signed On 09-23-2022 10:32:03 CDT by Samson Brock M.D. [id number]
[2022-09-23] MEDS: insulin lispro 100 unit/1 mL SUBCUT ×3 (08:16→17:39)
[2022-09-23] MEDS: isosorbide mononitrate ER 30 mg Tablet PO (08:17)
[2022-09-23] MEDS: apixaban 5 mg Tablet 2.5 MG PO (08:17)
[2022-09-23] MEDS: aspirin 81 mg EC Tablet PO (08:17)
[2022-09-23] MEDS: pantoprazole DR 40 mg Tablet PO (08:17)
[2022-09-23] MEDS: amlodipine 10 mg Tablet PO (08:17)
[2022-09-23 08:37] LABS: Glucose Point of Care 154 mg/dL (70-110)
[2022-09-23 09:28] LABS: Glucose Point of Care 93 mg/dL (70-110)
[2022-09-23 11:38] LABS: Glucose Point of Care 237 mg/dL (70-110)
--- NOTE | 2022-09-23 13:12 | PM.PN ---
Subjective Subjective: Patient is complaining of intermittent substernal chest pain, lately, he has prior history of CABG. He will benefit from nuclear stress test, will plan for Sunday. Medications: Medication Review Details: Generic Name Dose Route Start Last Admin Trade Name Cheri PRN Reason Stop Dose Admin Amlodipine Besylat e 10 mg 09/22/22 09:00 09/23/22 08:17 Amlodipine 10 Mg Tablet PO 10 mg DAILY VENKAT Administration Apixaban 2.5 mg 09/22/22 18:00 09/23/22 08:17 Apixaban 5 Mg Ta blet PO 2.5 mg BID VENKAT Administration Aspirin 81 mg 09/22/22 09:00 09/23/22 08:17 Aspirin 81 Mg Ec Tablet PO 81 mg DAILY VENKAT Administration Insulin Human Lisp ro 0 unit 09/22/22 18:00 09/23/22 12:32 Insulin Lispro 1 00 Unit/1 Ml SUBCUT 6 unit TIDWM VENKAT Administration Protocol Isosorbide Mononit rate 30 mg 09/22/22 09:00 09/23/22 08:17 Isosorbide [place] itrate Er 30 Mg Ta blet PO 30 mg DAILY VENKAT Administration Pantoprazole Sodiu m 40 mg 09/22/22 09:00 09/23/22 08:[address] 40 Mg Tablet PO 40 mg DAILY VENKAT Administration Ropinirole HCl 1 mg 09/22/22 21:00 09/22/22 20:06 Ropinirole 1 Mg Tablet PO 1 mg BEDTIME VENKAT Administration Vitals/I&O/Wt Last Vital Signs Temp 97.7 F 09/23/22 08:22 Pulse 70 09/23/22 08:22 Resp 15 09/23/22 08:22 BP 130/94 09/23/22 10:00 Pulse Ox 95 09/23/22 08:22 O2 Del Method Nasal Cannula 09/23/22 08:22 O2 Flow Rate 2 09/23/22 08:22 09/22/22 09/23/22 09/23/22 22:59 06:59 14:59 Intake Total 1104.167 / 2217.917 970 / 3187.917 340 / 340 Output Total 450 / 450 125 / 125 Balance 1104.167 / 2217.917 520 / 2737.917 215 / 215 Weight last 48 hrs Weight 136.078 kg Physical Exam Const: COMMON NORMALS: patient oriented x3 HENMT: COMMON NORMALS: normocephalic and atraumatic HEAD & SCALP: normocephalic and atraumatic Resp: COMMON NORMALS: clear to auscultation bilaterally EFFORT & INSPECTION: Yes symmetric chest movement AUSCULTATION: clear to auscultation bilaterally Cardio: COMMON NORMALS: regular rate, regular rhythm, S1 normal heart sound present, S2 normal heart sound present, No gallops present (Cardio), No murmurs present (Cardio), No rub (Cardio) and Peripheral pulses 2+ throughout RATE: regular rate RHYTHM: regular rhythm HEART SOUNDS: S1 normal heart sound present and S2 normal heart sound present PERIPHERAL PULSES: Peripheral pulses 2+ throughout GI: COMMON NORMALS: Normal to inspection, nondistended, normoactive bowel sounds present, Soft to palpation, non-tender, No hepatosplenomegaly present and no masses AUSCULTATION: Yes normoactive bowel sounds PALPATION: Yes Soft to palpation and Yes No hepatosplenomegaly present RECTAL EXAM: Yes deferred Extremity: COMMON NORMALS: no clubbing, cyanosis or edema and no pedal edema Neuro: COMMON NORMALS: patient oriented x3 Data 09/23/22 01:57 09/23/22 01:57 Micro: Microbiology 09/22/22 04:34 Blood Culture - Preliminary Blood NEGATIVE TO DATE 09/22/22 04:29 Blood Culture - Preliminary Blood NEGATIVE TO DATE A&P Assessment and plan (1) Syncope: (2) AFIA (acute kidney injury): (3) Contusion of left ear: (4) Hx of CABG: (5) CAD (coronary artery disease): (6) Hyperkalemia: (7) Hypertension: (8) Diabetes: Plan Assessment #Syncope #Chest pain #Atrial fibrillation #Frequent falls #AFIA on CKD, baseline unknown #Hyperkalemia: Resolved #Hypertension #Diabetes mellitus #History of CABG, coronary artery disease #Bilateral lower extremity pain with ambulation rule out possible PAD #Varicose vein Plan: 2D Echo : LV systolic function is normal with EF of 60 to 65%.Mild mitral regurgitation,?Mild tricuspid regurgitation Mild pulmonary hypertension. Troponin trend has been unremarkable No acute ST-T wave changes on EKG Follow carotid Doppler. Follow lower extremity arterial duplex SUMMER Scheduled for nuclear stress test Sunday morning Continue amlodipine, aspirin, omeprazole,imdur Hold spironolactone in view of hyperkalemia Continue Eliquis 2.5 mg p.o. twice daily LDSSI, monitor fingerstick glucose, Possible event monitor on discharge to rule out any underlying sick sinus syndrome/tachybradycardia syndrome. Was on cautious IV fluid hydration, has been stopped. Monitor BMP fall precautions Orthostatic vitals: Full code DVT prophylaxis: Currently on Eliquis Physical therapy on board Attestations Medical Necessity Statement*: Needs to be in hospital for chest pain, evaluation, syncope. Coding Level of Care Code 01896 Diagnoses Syncope R55 AFIA (acute kidney injury) N17.9 Contusion of left ear S00.432A Hx of CABG Z95.1 CAD (coronary artery disease) I25.10 Hyperkalemia E87.5 Hypertension I10 Diabetes E11.9
[2022-09-23 16:43] LABS: Glucose Point of Care 182 mg/dL (70-110)
[2022-09-23] MEDS: enoxaparin 120 mg/0.8 mL Syringe SUBCUT (20:05)
[2022-09-23] MEDS: ropinirole 1 mg Tablet PO (20:06)
[2022-09-23 21:22] LABS: Glucose Point of Care 187 mg/dL (70-110)
[2022-09-24] VITALS (14 sets, daily range): BP systolic 120–174; BP diastolic 53–83; PULSE 62–80; RESP 14–24; TEMP 36.7–36.8; O2SAT 92–96
[2022-09-24 06:02] LABS: Basophils % 0.4 %; Eosinophils # 0.2 10^3/uL (0.0-0.8); Eosinophils % 4.2 %; Hematocrit 35.6 % (42.0-52.0); Hemoglobin 11.5 g/dL (11.7-16.6); Lymphocytes # 1.2 10^3/uL (0.8-4.8); Lymphocytes % 21.7 %; Mean Corpuscular HGB Conc 32.3 g/dL (30.0-36.0); Mean Corpuscular Hemoglobin 29.7 pg (28.0-34.0); Mean Platelet Volume 9.9 fL (7.4-10.4); Monocytes # 0.5 10^3/uL (0.2-0.9); Monocytes % 8.3 %; Neutrophils # 3.53 10^3/uL (1.8-7.7); Neutrophils % 64.8 %; Nucleated Red Blood Cells % 0 %; Platelet Count 166 10^3/cmm (130-400); Red Blood Count 3.87 10^6/uL (4.1-5.3); Red Cell Distribution Width 14.8 % (12.1-15.1); White Blood Count 5.4 10^3/uL (4.0-10.0)
[2022-09-24] MEDS: enoxaparin 120 mg/0.8 mL Syringe SUBCUT ×2 (06:04→18:21)
[2022-09-24 06:30] LABS: Alanine Aminotransferase 13 U/L (0-41); Albumin Level 3.2 g/dL (3.5-5.2); Alkaline Phosphatase 92 U/L (40-130); Anion Gap 13.3 (5-19); Aspartate Amino Transferase 15 U/L (0-40); Blood Urea Nitrogen 24 mg/dL (8-23); Calcium 8.5 mg/dL (8.5-10.5); Carbon Dioxide 23 mmol/L (22-29); Chloride 104 mmol/L (98-107); Globulin 2.8 g/dL (1.3-4.6); Glucose 157 mg/dL (65-115); Osmolality Calculated 289 mOsm/kg (285-295); Potassium 4.3 mmol/L (3.5-5.1); Sodium 136 mmol/L (136-145); Total Bilirubin 0.4 mg/dL (0.15-1.2)
[2022-09-24] MEDS: insulin lispro 100 unit/1 mL SUBCUT ×3 (08:53→18:21)
[2022-09-24] MEDS: pantoprazole DR 40 mg Tablet PO (08:54)
[2022-09-24] MEDS: aspirin 81 mg EC Tablet PO (08:54)
[2022-09-24] MEDS: amlodipine 10 mg Tablet PO (08:54)
[2022-09-24] MEDS: isosorbide mononitrate ER 30 mg Tablet PO (08:54)
--- NOTE | 2022-09-24 10:43 | P.PN_ITS ---
Subjective Subjective: Patient was seen and examined this morning, denied any chest pain in the last 24 hours.He is complaining of bilateral lower extremity pain with ambulation(claudication). Medications: Medication Review Details: Generic Name Dose Route Start Last Admin Trade Name Cheri PRN Reason Stop Dose Admin Amlodipine Besylat e 10 mg 09/22/22 09:00 09/24/22 08:54 Amlodipine 10 Mg Tablet PO 10 mg DAILY VENKAT Administration Aspirin 81 mg 09/22/22 09:00 09/24/22 08:54 Aspirin 81 Mg Ec Tablet PO 81 mg DAILY VENKAT Administration Enoxaparin Sodium 120 mg 09/23/22 19:00 09/24/22 06:04 Enoxaparin 120 M g/0.8 Ml Syringe SUBCUT 120 mg Q12H VENKAT Administration Insulin Human Lisp ro 0 unit 09/22/22 18:00 09/24/22 08:53 Insulin Lispro 1 00 Unit/1 Ml SUBCUT 2 unit TIDWM VENKAT Administration Protocol Isosorbide Mononit rate 30 mg 09/22/22 09:00 09/24/22 08:54 Isosorbide [place] itrate Er 30 Mg Ta blet PO 30 mg DAILY VENKAT Administration Pantoprazole Sodiu m 40 mg 09/22/22 09:00 09/24/22 08:[address] 40 Mg Tablet PO 40 mg DAILY VENKTA Administration Ropinirole HCl 1 mg 09/22/22 21:00 09/23/22 20:06 Ropinirole 1 Mg Tablet PO 1 mg BEDTIME VENKAT Administration Vitals/I&O/Wt Last Vital Signs Temp 98.1 F 09/24/22 07:53 Pulse 63 09/24/22 08:00 Resp 18 09/24/22 07:53 BP 147/79 09/24/22 07:53 Pulse Ox 92 09/24/22 08:00 O2 Del Method Room Air 09/24/22 08:00 O2 Flow Rate 2 09/23/22 08:22 09/23/22 09/24/22 09/24/22 22:59 06:59 14:59 Intake Total 660 / 2162.5 300 / 2462.5 240 / 240 Output Total 650 / 775 450 / 1225 Balance 10 / 1387.5 -150 / 1237.5 240 / 240 Physical Exam 2 Const: COMMON NORMALS: patient oriented x3 HENMT: COMMON NORMALS: normocephalic and atraumatic HEAD & SCALP: normocephalic and atraumatic Resp: COMMON NORMALS: clear to auscultation bilaterally EFFORT & INSPECTION: Yes symmetric chest movement AUSCULTATION: clear to auscultation bilaterally Cardio: COMMON NORMALS: regular rate, regular rhythm, S1 normal heart sound present, S2 normal heart sound present, No gallops present (Cardio), No murmurs present (Cardio), No rub (Cardio) and Peripheral pulses 2+ throughout RATE: regular rate RHYTHM: regular rhythm HEART SOUNDS: S1 normal heart sound present and S2 normal heart sound present PERIPHERAL PULSES: Peripheral pulses 2+ throughout GI: COMMON NORMALS: Normal to inspection, nondistended, normoactive bowel sounds present, Soft to palpation, non-tender, No hepatosplenomegaly present and no masses AUSCULTATION: Yes normoactive bowel sounds PALPATION: Yes Soft to palpation and Yes No hepatosplenomegaly present RECTAL EXAM: Yes deferred Extremity: COMMON NORMALS: no clubbing, cyanosis or edema and no pedal edema Neuro: COMMON NORMALS: patient oriented x3 Data 09/24/22 04:30 09/24/22 04:30 A&P Assessment and plan (1) Syncope: (2) AFIA (acute kidney injury): (3) Contusion of left ear: (4) Hx of CABG: (5) CAD (coronary artery disease): (6) Hyperkalemia: (7) Hypertension: (8) Diabetes: Plan Assessment #Syncope #Chest pain #Atrial fibrillation possibility of underlying sick sinus syndrome or tachybradycardia syndrome cannot be conclusively ruled out. #Frequent falls #AFIA on CKD, baseline unknown #Hyperkalemia: Resolved #Hypertension #Diabetes mellitus #History of CABG, coronary artery disease #Bilateral lower extremity pain with ambulation rule out possible PAD #Varicose vein Plan: 2D Echo : LV systolic function is normal with EF of 60 to 65%.Mild mitral regurgitation,?Mild tricuspid regurgitation Mild pulmonary hypertension. Troponin trend has been unremarkable No acute ST-T wave changes on EKG Carotid Doppler. No flow-limiting stenosis lower extremity arterial duplex,SUMMER:Slightly diminished resting SUMMER bilaterally, suggestive of mild peripheral artery disease. Markedly elevated velocity in the right dorsalis pedis artery, suggestive of greater than 60% stenosis.Elevated velocity in the left posterior tibial artery, may?suggest hemodynamically significant stenosis. Exercise SUMMER CT angio abdominal aorta runoff: Nuclear stress test ; Continue amlodipine, aspirin, omeprazole,imdur Hold spironolactone in view of hyperkalemia Continue Eliquis 2.5 mg p.o. twice daily LDSSI, monitor fingerstick glucose, Possible event monitor on discharge to rule out any underlying sick sinus syndrome/tachybradycardia syndrome. Was on cautious IV fluid hydration, has been stopped. Monitor BMP fall precautions Orthostatic vitals: Full code DVT prophylaxis: Currently on Eliquis Physical therapy on board Attestations Medical Necessity Statement*: Needs to be in hospital for chest pain work-up, pending nuclear stress test. Coding Level of Care Code 03849 Diagnoses Syncope R55 AFIA (acute kidney injury) N17.9 Contusion of left ear S00.432A Hx of CABG Z95.1 CAD (coronary artery disease) I25.10 Hyperkalemia E87.5 Hypertension I10 Diabetes E11.9
--- NOTE | 2022-09-24 10:54 | CTR_ITS ---
PROCEDURE INFORMATION: Exam: CTA Abdominal Aorta and Bilateral Lower Extremities (Run-off) With Contrast Exam date and time: 09/24/2022 12:17 PM Age: 82 years old Clinical indication: Other: Pad work up TECHNIQUE: Imaging protocol: Computed tomographic angiography of the of the abdominal aorta, pelvis and bilateral lower extremities with contrast. 3D rendering (Not supervised by radiologist): MIP and/or 3D reconstructed images were created by the technologist. Radiation optimization: All CT scans at this facility use at least one of these dose optimization techniques: automated exposure control; mA and/or kV adjustment per patient size (includes targeted exams where dose is matched to clinical indication); or iterative reconstruction. Contrast material: OMNI 350; Contrast volume: 100 ml; Contrast route: INTRAVENOUS (IV); REPORTING DATA: Count of CT and Cardiac NM exams in prior 12 months: This patient has received 2 known CTs and 0 known cardiac nuclear medicine studies in the 12 months prior to the current study. COMPARISON: CT abdomen pelvis w con* [id number] 12/21/2015 8:06 AM RADIATION DOSE METRICS: Total DLP (mGy-cm): 806.55 FINDINGS: Aorta: Scattered atherosclerotic plaque. No aortic aneurysm. No aortic dissection. Celiac trunk and mesenteric arteries: No occlusion or significant stenosis of the celiac trunk. Scattered atherosclerotic plaque in the superior mesenteric artery with regions of [id number] stenosis. Renal arteries: There is atherosclerotic plaque in the proximal right renal artery with a short segment of moderate stenosis measuring 6 mm in the transverse dimension. Atherosclerotic plaque in the proximal left renal artery results in mild narrowing. Right iliac arteries: There is atherosclerotic plaque throughout with regions of mild narrowing in the common iliac, external iliac, and internal iliac arteries. Right femoral/popliteal arteries: There is atherosclerotic plaque throughout the common femoral, superficial femoral, and deep femoral arteries. There are regions of mild narrowing in the superficial and deep femoral arteries. There is atherosclerotic plaque in the visualized right popliteal artery with regions of at least moderate stenosis. Artifact from the right total hip replacement obscures this region. Right infrapopliteal arteries: Calcified plaque in the anterior tibialis, posterior tibialis, and peroneal arteries makes it difficult to visualize internal flow. There are regions of at least moderate to severe stenosis in the proximal to mid portions of these arteries. There is thready flow in the distal posterior tibialis and peroneal arteries with regions of occlusion. Left iliac arteries: No occlusion or significant stenosis. Left femoral/popliteal arteries: Atherosclerotic plaque in the common femoral artery without significant stenosis. There is atherosclerotic plaque in the superficial femoral artery with regions of mild narrowing. There is atherosclerotic plaque in the deep femoral artery with regions of bsjr-wf-siwznice stenosis. Portions of the popliteal artery are obscured by artifact from the left total hip replacement. There is atherosclerotic plaque at the distal aspect of the popliteal artery with regions of moderate to severe stenosis. Left infrapopliteal arteries: There is atherosclerotic plaque in the anterior tibialis artery with regions of moderate to severe stenosis at the proximal and mid aspects. There is no flow seen within the distal aspect of the left anterior tibialis artery. Atherosclerotic plaque in the left posterior tibialis artery results in regions of moderate to severe stenosis. There is atherosclerotic plaque in the peroneal artery with regions of moderate stenosis at the proximal and mid aspects. Thready flow is seen within the distal peroneal artery with regions of occlusion. Liver: No mass. Gallbladder and bile ducts: The gallbladder has been removed. Pancreas: Moderate pancreatic atrophy. Spleen: The spleen is mildly enlarged measuring 13.9 centimetres. Adrenal glands: Normal. No mass. Kidneys and ureters: Atrophic right kidney with scarring. There are bilateral renal cysts with benign features the largest of which measures 2.0 cm in the left kidney. Indeterminate cystic lesion at the lateral aspect of the right kidney midpole measures 2.4 cm in the transverse dimension and is stable from the prior study. Stomach and bowel: Colonic constipation is present. Appendix: A normal appendix is identified. Urinary bladder: Unremarkable. No mass. Reproductive: Unremarkable as visualized. Intraperitoneal space: Unremarkable. No free air. No significant fluid collection. Lymph nodes: No lymphadenopathy. Bones/joints: There are degenerative changes in the visualized spine.There are diffuse enthesopathic changes consistent with benign diffuse idiopathic skeletal hyperostosis (DISH). Bilateral total knee replacements with resultant artifact obscuring adjacent structures. Soft tissues: There is edema and emphysema in the subcutaneous soft tissues of the left lower quadrant ventral abdomen consistent with a recent injection sites. There is mild edema in the subcutaneous soft tissues surrounding the abdomen, pelvis, and lower extremities. CT/CT angio abd aorta runof [id number] IMPRESSION: 1. Multi-vessel atherosclerotic disease with regions stenosis and occlusion as described in detail above. 2. Mild splenomegaly. 3. Colonic constipation is present. 4. Atrophic right kidney with scarring. Indeterminate cystic lesion at the lateral aspect of the right kidney midpole measures 2.4 cm in the transverse dimension and is stable from the prior study.
[2022-09-24] MEDS: ipratropium-albuterol 3 mL Neb INHALATION ×2 (11:15→16:19)
[2022-09-24] MEDS: sodium chloride 0.9% 1,000 ML 50 ML IV (11:46)
[2022-09-24 12:08] LABS: Glucose Point of Care 270 mg/dL (70-110)
[2022-09-24] MEDS: iohexol 350 mg/mL 500 mL Btl (per mL) IV (12:27)
[2022-09-24 16:53] LABS: Glucose Point of Care 201 mg/dL (70-110)
[2022-09-24] MEDS: ropinirole 1 mg Tablet PO (21:20)
[2022-09-24] MEDS: benzonatate 100 mg Capsule PO (21:20)
[2022-09-24 21:21] LABS: Glucose Point of Care 230 mg/dL (70-110)
[2022-09-25] VITALS (15 sets, daily range): BP systolic 131–178; BP diastolic 64–93; PULSE 64–79; RESP 14–26; TEMP 36.6–37.1; O2SAT 91–97
[2022-09-25 05:20] LABS: Basophils % 0.5 %; Eosinophils # 0.2 10^3/uL (0.0-0.8); Eosinophils % 2.6 %; Hematocrit 35.8 % (42.0-52.0); Hemoglobin 11.5 g/dL (11.7-16.6); Lymphocytes % 16.5 %; Mean Corpuscular HGB Conc 32.1 g/dL (30.0-36.0); Mean Corpuscular Hemoglobin 29.6 pg (28.0-34.0); Mean Platelet Volume 9.7 fL (7.4-10.4); Monocytes # 0.4 10^3/uL (0.2-0.9); Monocytes % 7.1 %; Neutrophils # 4.18 10^3/uL (1.8-7.7); Neutrophils % 72.4 %; Nucleated Red Blood Cells % 0 %; Platelet Count 162 10^3/cmm (130-400); Red Blood Count 3.89 10^6/uL (4.1-5.3); Red Cell Distribution Width 14.8 % (12.1-15.1); White Blood Count 5.8 10^3/uL (4.0-10.0)
[2022-09-25 05:34] LABS: Alanine Aminotransferase 20 U/L (0-41); Albumin Level 3.2 g/dL (3.5-5.2); Alkaline Phosphatase 102 U/L (40-130); Aspartate Amino Transferase 21 U/L (0-40); Blood Urea Nitrogen 21 mg/dL (8-23); Calcium 8.5 mg/dL (8.5-10.5); Carbon Dioxide 24 mmol/L (22-29); Chloride 101 mmol/L (98-107); Globulin 2.9 g/dL (1.3-4.6); Glucose 171 mg/dL (65-115); Osmolality Calculated 289 mOsm/kg (285-295); Sodium 136 mmol/L (136-145); Total Bilirubin 0.4 mg/dL (0.15-1.2); Total Protein 6.1 g/dL (6.6-8.7)
[2022-09-25] MEDS: enoxaparin 120 mg/0.8 mL Syringe SUBCUT (06:04)
[2022-09-25 06:43] LABS: Glucose Point of Care 199 mg/dL (70-110)
--- NOTE | 2022-09-25 06:45 | ECG_ITS ---
[facility] Test Date: 2022-09-25 Pat Name: Andrez Olvera Department: Room: 112 Gender: Male Contact Worker: Maame Edwards : 1940 Requested By: Samson Brock Order Number: [id number] MD: Samson Brock M.D. Interpretive Statements NAME OF STUDY: LEXISCAN SESTAMIBI STRESS TEST INDICATION: [Chest Pain, ] Procedure: At the baseline, the blood pressure was 151/81 mmHg with a heart rate of 70 bpm. The electrocardiogram showed atrial fibrillation, normal axis with normal ST and T's. The Lexiscan was infused over a period of 20 seconds. A total of 0.4 mg of Lexiscan was infused. The stress phase was continued for a total of 5 minutes. Heart rate was at the end of stress phase was 68 bpm and a blood pressure of 162/70 mmHg. The EKG at the peak infusion revealed atrial fibrillation with no significant ST-T wave changes. Sestamibi was injected 20 seconds after the Lexiscan infusion. Blood pressure at the end of recovery phase was 150/70 mmHg with a heart rate of 70 bpm. Conclusion: 1. Normal EKG response to Lexiscan infusion 2. No Lexiscan induced chest pain or cardiac arrhythmia. 3. Normal blood pressure and heart rate response. 4. Sestamibi/sestamibi perfusion scan pending; see separate report. Electronically Signed On 10-08-2022 15:02:18 CDT by Samson Brock M.D. [email or web address]
[2022-09-25] MEDS: regadenoson 0.4 Mg/5 ml Syringe IVP (07:40)
[2022-09-25] MEDS: amlodipine 10 mg Tablet PO (08:50)
[2022-09-25] MEDS: pantoprazole DR 40 mg Tablet PO (08:50)
[2022-09-25] MEDS: isosorbide mononitrate ER 30 mg Tablet PO (08:50)
[2022-09-25] MEDS: aspirin 81 mg EC Tablet PO (08:50)
[2022-09-25] MEDS: insulin lispro 100 unit/1 mL SUBCUT ×3 (08:55→17:19)
[2022-09-25 09:23] LABS: Glucose Point of Care 185 mg/dL (70-110)
--- NOTE | 2022-09-25 10:53 | USCV_ITS ---
MayAndrez albarran Age: 82 Gender: M : 1940 Exam Date: 09/25/2022 10:22 Ordering Phys: Hans Hooper MD Technologist: Pradeep Euceda Exam Location: [facility] [place]_ Indication: Leg Pain RIGHT LEFT Brachial 188.00 mmHg Brachial 157.00 mmHg Pressure (mmHg) Waveform Pressure (mmHg) Waveform 220.00 N/A CT SCAN TECHNOLOGIST 220.00 N/A 220.00 N/A DPA 220.00 N/A 90.00 Pre-Exercise Toe Pressure 121.00 Pre-Exercise Toe/Brachial Index 0.64 0.48 FINDINGS Patient was unable to stand and exercise in order to complete exercise portion of SUMMER Noncompressible CT SCAN TECHNOLOGIST and DPA on Rt and Lt. Noncompressible ankle vessels. Resting SUMMER 0.48 on the right and 0.64 on the left CONCLUSIONS 1. Features of extensive arterial sclerosis 2. Abnormal resting TBI suggesting moderate peripheral artery disease on the right and mild peripheral artery disease in the left. Dr Frank Sr MD [facility] (Electronically Signed) Final Date: 26 September 2022 09:09 S
[2022-09-25 11:30] LABS: Glucose Point of Care 265 mg/dL (70-110)
--- NOTE | 2022-09-25 13:14 | NMCV_ITS ---
NM shyann perf SPECT r/s* [id number] Andrez Olvera Age: 82 Gender: M : 1940 Exam Date: 09/25/2022 06:30 Ordering Phys: Hans Hooper MD Technologist: LYLE Patrick Exam Location: [facility] Indications: CHEST PAIN STRESS TEST Please see separate stress test report in [facility] for full findings IMAGE PROTOCOL Rest/Stress 1 Lexiscan Day Radiopharmaceutical Dose (mCi) Administration Site Administered by Rest: Tc-99m 10.9 IV LYLE Altamirano Sestamibi Stress:Tc-99m 33.0 IV LYLE Altamirano Sestamibi Rest: 25-Sep-2022 60 Discovery 630 Stress: 25-Sep-2022 30 Discovery 630 0.4mg Lexiscan. Supine position only as patient was unable to lay prone. SPECT RESULTS Technical Quality: Excellent Raw Data Analysis: Normal Image Corrections: No attenuation or motion correction applied Summed Stress Score: 3 Summed Rest Score: 5 Summed Difference Score: 1 PERFUSION FINDINGS There is a small in size mostly reversible perfusion defect noted in the anterior septal wall. This is consistent with small sized area of ischemia in the LAD territory. FUNCTIONAL RESULTS (calculated via Gated SPECT) Stress Image LV EF (%): 79 Stress EDV (mL):92 TID: 1.11 Stress ESV (mL):19 FUNCTIONAL FINDINGS: There is normal left ventricular systolic function. IMPRESSIONS 1. Small sized area of ischemia noted in the LAD territory. 2. LV systolic function is normal Samson Brock MD (Electronically Signed) Final Date: 25 September 2022 11:35 S
--- NOTE | 2022-09-25 16:53 | P.PN_ITS ---
Subjective Subjective: Mr. Sampson appears to have intermittent confusion today. He tells me today that he came in with a fall when he fell in the bathroom. Does not recall the events leading up to the fall however on waking up he found that his legs were overriding the BiPAP. He states that he got the hematoma over his right thigh on the said date, however per his he had the hematoma at least a week prior to his syncopal event on the day of admission She suspects he got the hematoma from either riding his tractor too long or falling from the tractor that day. He tells me that he is on Eliquis for blood clots but unable to tell me where the blood clots are located. He does not know if he has any atrial fibrillation. He is able to tell me that he had a triple-vessel bypass in 1999. Currently he denies any chest pain, only is complaining of pain in his right thigh. States that he was unable to stand on his tiptoes during the cardiac stress test. Also tells me that he is currently off Eliquis and getting a blood thinner drip where his blood numbers are being tested and they are ranging 1 90-200. I suspect patient is referring to PTT however he is not currently on a heparin drip. states that patient does appear to be somewhat confused however has been since the day of admission. He does not have any history of sundowning. He has not been able to sleep well overnight due to scheduled studies earlier today. also reports that patient has been complaining on and off on and off chest pain since May 2022. It appears chest pain was first reported when he worked on some plumbing at his home. Note is also made of chest pain on previous physicians daily progress notes, however patient currently denies chest pain to me. His stress test performed earlier today showed a small sized area of ischemia noted in the LAD territory. Medications: Reviewed: Yes Medication Review Details: Generic Name Dose Route Start Last Admin Trade Name Cheri PRN Reason Stop Dose Admin Amlodipine Besylat e 10 mg 09/22/22 09:00 09/24/22 08:54 Amlodipine 10 Mg Tablet PO 10 mg DAILY VENKAT Administration Aspirin 81 mg 09/22/22 09:00 09/24/22 08:54 Aspirin 81 Mg Ec Tablet PO 81 mg DAILY VENKAT Administration Enoxaparin Sodium 120 mg 09/23/22 19:00 09/24/22 06:04 Enoxaparin 120 M g/0.8 Ml Syringe SUBCUT 120 mg Q12H VENKAT Administration Insulin Human Lisp ro 0 unit 09/22/22 18:00 09/24/22 08:53 Insulin Lispro 1 00 Unit/1 Ml SUBCUT 2 unit TIDWM VENKAT Administration Protocol Isosorbide Mononit rate 30 mg 09/22/22 09:00 09/24/22 08:54 Isosorbide [place] itrate Er 30 Mg Ta blet PO 30 mg DAILY VENKAT Administration Pantoprazole Sodiu m 40 mg 09/22/22 09:00 09/24/22 08:[address] 40 Mg Tablet PO 40 mg DAILY VENKAT Administration Ropinirole HCl 1 mg 09/22/22 21:00 09/23/22 20:06 Ropinirole 1 Mg Tablet PO 1 mg BEDTIME VENKAT Administration Vitals/I&O/Wt Last Vital Signs Temp 97.9 F 09/25/22 14:02 Pulse 68 09/25/22 14:01 Resp 21 H 09/25/22 14:01 BP 145/70 09/25/22 14:01 Pulse Ox 93 09/25/22 14:01 O2 Del Method Room Air 09/25/22 14:01 O2 Flow Rate 2 09/23/22 08:22 09/25/22 09/25/22 09/25/22 06:59 14:59 22:59 Intake Total 0 / 960 1600 / 1600 Output Total 225 / 475 Balance -225 / 485 1600 / 1600 Physical Exam Narrative: General: No acute distress, AO x3, however he is tangential in conversation. HEENT: PERRLA, pupils bilaterally equal and reactive, pallors not present Chest: Scattered wheezing to auscultation bilaterally CVS: S1-S2 regular, no murmurs, no tachycardia, no gallops, no rubs Abdomen: Soft, nontender, no organomegaly, bowel sounds present Neuro: No focal deficits, no facial deformity, AO x3, power 5/5 in all limbs Extremities: Right thigh hematoma posteriorly extending from mid thigh to popliteal fossa, bluish-purple in color Data 09/25/22 04:45 09/25/22 04:45 A&P Assessment and plan (1) Syncope: (2) AFIA (acute kidney injury): (3) Contusion of left ear: (4) Hx of CABG: (5) CAD (coronary artery disease): (6) Hyperkalemia: (7) Hypertension: (8) Diabetes: Plan 82-year-old male with a past medical history of coronary artery disease, currently admitted for assessment of syncopal episode that he had at home. He has also had intermittent chest pain ongoing since May of this year. Recent history of repeated falls. #Syncope Unclear circumstances of passing out at home. Continued on telemetry. History of atrial fibrillation. Currently he is rate controlled. Orthostatics are within normal range. CT head showing nonspecific white matter changes possibly chronic. Carotid artery ultrasound with moderate plaques at bifurcations and proximal ICA less than 50% stenosis. TSH within normal range Patient has intermittent confusion, suspect possible hospital delirium or underlying dementia. Frequent reorientation, family currently at bedside. #Chest pain with elevated troponins. Earlier during course of admission had also complained of chest pain. Today he only complains of pain in his right thigh. EKG without any acute ST-T wave changes. Baseline troponin upon admission at 36, trended up to 74 and then 77. Underwent stress test today which is concerning for ischemia in the LAD territory. Patient is currently on treatment with aspirin 81 mg p.o. daily, Lovenox 120 mg every 12 hours, reported allergy to statins 2D Echo : LV systolic function is normal with EF of 60 to 65%.Mild mitral regurgitation,?Mild tricuspid regurgitation Mild pulmonary hypertension. cardiology consult #Developing wheezing on exam. Unknown if he has a history of COPD however albuterol inhalation is seen on the medication list as needed. Continue DuoNeb inhalation. Stop IV fluids. Check BNP and obtain CXR #Right thigh posterior hematoma. Per predates admission by about 1 week, patient himself does not know timeline of hematoma formation. He has had lower extremity studies including CTA and arterial duplex, I do not see any mention of the hematoma on the studies. Will obtain ultrasound soft tissue to assess for any intramuscular extension. Extent of hematoma may be relevant in case patient undergoes cardiac cath and is to be on dual antiplatelet therapy. Eliquis is currently on hold. Hemoglobin has been stable No active bleeding identified on recent CTA Complaining of significant pain at the location. We will continue tramadol and add as needed morphine for pain management. #Peripheral artery disease lower extremity arterial duplex,SUMMER:Slightly diminished resting SUMMER bilaterally, suggestive of mild peripheral artery disease. Markedly elevated velocity in the right dorsalis pedis artery, suggestive of greater than 60% stenosis.Elevated velocity in the left posterior tibial artery, may?suggest hemodynamically significant stenosis. Full code DVT prophylaxis: Currently on full dose lovenox Attestations Medical Necessity Statement*: stop iv Fluids, abnormal stress test, cardiology assessment, pain mgmt for hematoma Coding Level of Care Code Acute Code for Chg Fwd Moderate MDM includes number and complexity of problems actively addressed during encounter, amount and/or complexity of data reviewed/ordered and described risk of complication, morbidity or mortality of management as documented Diagnoses Syncope R55 AFIA (acute kidney injury) N17.9 Contusion of left ear S00.432A Hx of CABG Z95.1 CAD (coronary artery disease) I25.10 Hyperkalemia E87.5 Hypertension I10 Diabetes E11.9
--- NOTE | 2022-09-25 17:00 | USR_ITS ---
PROCEDURE INFORMATION: Exam: US Right Non-Vascular Joint or Other Extremity Structure Exam date and time: 09/25/2022 5:40 PM Age: 82 years old Clinical indication: Other: Hematoma/bruising; Additional info: Right thigh hematoma, assess for intramuscular hematoma TECHNIQUE: Imaging protocol: Right US joint or other nonvascular extremity structure or structures. Real-time ultrasound with image documentation. Limited study. Exam focused on the lower extremity in the region of clinical interest. COMPARISON: CT angio abd aorta runof [id number] 09/24/2022 12:17 PM FINDINGS: Soft tissues: Diffuse subcutaneous soft tissue edema. In the deep soft tissues of the medial right thigh is an approximate 3.5 x 5.5 x 11.5 cm inhomogenous hypoechoic fluid collection with no internal vascularity. When correlated to the CTA abdomen pelvis with bilateral runoff, this corresponds to a 5.5 x 4.6 x 14.7 cm inhomogenous hyperdense hematoma located within the right adductor longus muscle. US/US soft tissue/extremity [id number] IMPRESSION: 1. Approximate 3.5 x 5.5 x 11.5 cm hematoma in the right adductor longus muscle. In retrospect, this is unchanged or slightly smaller than on the CTA performed on 09/24/2022.
--- NOTE | 2022-09-25 17:13 | P.CONIM_ITS ---
Providers/Reason For Consult Consulting Physician/Specialty*: Samson Brock MD/ Cardiology Reason for Consult*: Syncope/troponin elevation/abnormal stress test Attending Physician: Alyssa Shay MD Primary Care Provider: Greg Medeiros DO History of Present Illness History of Present Illness Andrez Olvera is a 82 year old male with past medical history of these, CABG in 2001, chronic anticoagulation for atrial fibrillation who presented to hospital with syncope and fall in the shower. He has had multiple syncopal episodes recently. Does have shortness of breath but denies chest pain. He says he did not get any warning sign before it. The initial troponin was 34 and trended up to 77 later. He had a stress test that is showing small area of ischemia in the LAD territory. Echo shows normal LV systolic function. Patient does have a large hematoma on right thigh and according to the , they do not know when it developed but has been there for a few days. He has been on lovenox since hospital admission. 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 Review of Systems Narrative: CONSTITUTIONAL: Syncope HEENT: Normocephalic, atraumatic.[] RESPIRATORY: No cough, sputum, hemoptysis or wheezing.[] CARDIOVASCULAR: Has shortness of breath GI: no nausea vomiting diarrhea. [] ELECTRICAL TECHNICIAN: Syncope MUSCULOSKELETAL: No knee or joint pain or rashes. [] Medications/Allergies Home Medications Medication Instructions Recorded Confirmed Last Taken Type albuterol sulfate 90 mcg/actuation 1 inh inhalation Q4H 08/30/20 09/22/22 Unknown History breath activated powder inhaler,sensor amlodipine 10 mg tablet 10 mg PO DAILY 08/30/20 09/22/22 09/21/22 08:00 History apixaban 2.5 mg tablet 2.5 mg PO BID 08/30/20 09/22/22 09/21/22 17:00 History aspirin 81 mg tablet,delayed 81 mg PO DAILY 08/30/20 09/22/22 09/21/22 08:00 History release cyclobenzaprine 10 mg tablet 10 mg PO TID PRN muscle spasms 08/30/20 09/22/22 Unknown History isosorbide mononitrate 30 mg 30 mg PO DAILY 08/30/20 09/22/22 09/21/22 08:00 History tablet,extended release 24 hr omeprazole 20 mg capsule,delayed 20 mg PO DAILY 08/30/20 09/22/22 09/21/22 08:00 History release spironolactone 25 mg tablet 50 mg PO DAILY 08/30/20 09/22/22 09/21/22 08:00 History ropinirole 1 mg tablet 1 mg PO BEDTIME 09/22/22 09/22/22 09/21/22 20:00 History tramadol 50 mg tablet 50 mg PO Q6H PRN pain 09/22/22 09/22/22 Unknown History Allergies Allergy/AdvReac Type Severity Reaction Status Date / Time lovastatin Allergy rash Verified 09/19/21 12:28 Current Medications Generic Name Dose Route Start Last Admin Trade Name Freq PRN Reason Stop Dose Admin Albuterol/Ipratropium 3 ml 09/24/22 10:17 09/24/22 16:19 Ipratropium-Albuterol 3 Ml Neb INHALATION 3 ml Q6H PRN Administration SHORTNESS OF BREATH Amlodipine Besylate 10 mg 09/22/22 09:00 09/25/22 08:50 Amlodipine 10 Mg Tablet PO 10 mg DAILY VENKAT Administration Aspirin 81 mg 09/22/22 09:00 09/25/22 08:50 Aspirin 81 Mg Ec Tablet PO 81 mg DAILY VENKAT Administration Benzonatate 100 mg 09/24/22 10:17 09/24/22 21:20 Benzonatate 100 Mg Capsule PO 100 mg TID PRN Administration COUGH Enoxaparin Sodium 120 mg 09/23/22 19:00 09/25/22 06:04 Enoxaparin 120 Mg/0.8 Ml Syringe SUBCUT 120 mg Q12H VENKAT Administration Sodium Chloride 1,000 mls @ 50 mls/hr 09/24/22 11:00 09/25/22 09:42 Sodium Chloride 0.9% IV Infused .Q20H VENKAT Infusion Insulin Human Lispro 0 unit 09/22/22 18:00 09/25/22 11:34 Insulin Lispro 100 Unit/1 Ml SUBCUT 8 unit TIDWM VENKAT Administration Protocol Isosorbide Mononitrate 30 mg 09/22/22 09:00 09/25/22 08:50 Isosorbide Mononitrate Er 30 Mg Tablet PO 30 mg DAILY VENKAT Administration Pantoprazole Sodium 40 mg 09/22/22 09:00 09/25/22 08:[address] 40 Mg Tablet PO 40 mg DAILY VENKAT Administration Ropinirole HCl 1 mg 09/22/22 21:00 09/24/22 21:20 Ropinirole 1 Mg Tablet PO 1 mg BEDTIME VENKAT Administration PFSH Acute PFSH: Social History Smoking and tobacco status: never smoked Vitals/I&O/Wt Last Vital Signs Temp 97.9 F 09/25/22 14:02 Pulse 68 09/25/22 14:01 Resp 21 H 09/25/22 14:01 BP 145/70 09/25/22 14:01 Pulse Ox 93 09/25/22 14:01 O2 Del Method Room Air 09/25/22 14:01 O2 Flow Rate 2 09/23/22 08:22 09/25/22 09/25/22 09/25/22 06:59 14:59 22:59 Intake Total 0 / 960 1600 / 1600 Output Total 225 / 475 Balance -225 / 485 1600 / 1600 Physical Exam Narrative: GENERAL: Patient is alert, awake and oriented x3. [] NECK: No jugular vein distension. [] HEENT: No cyanosis. No icterus. No pallor. [] HEART: Irregular irregular LUNGS: Clear to auscultate bilaterally. [] ABDOMEN: Soft CENTRAL NERVOUS SYSTEM: Grossly nonfocal. [] EXTREMITIES:Has a large sized hematoma on the right thigh Data 09/27/22 05:53 09/27/22 05:53 A&P Assessment and plan (1) CAD (coronary artery disease): (2) Syncope: (3) AFIA (acute kidney injury): (4) Hx of CABG: (5) Hypertension: (6) Diabetes: (7) Elevated troponin: Plan Patient has presented with syncopal episode. He is not a good historian. His troponin levels were elevated at admission. Stress test is showing ischemia in LAD territory. His AFIA is improving. I had a detailed discussion with family and him that ideally coronary angiogram should be performed however he has a large sized hematoma in the thigh and renal function is not normal. All options were discussed. They have decided for medical therapy at this time. Repeat an ultrasound of the right thigh to assess size of hematoma and comparison with recent CT. We will hold anticoagulation at this time. At time of discharge patient can be put on event monitor. Thank you for involving us with care of this patient. We will continue to follow. Please call with questions. Consult Attestations Medical Necessity Statement: Care expected to cross 2 midnights. Coding Level of Care Code Acute Code for Chg Fwd Diagnoses CAD (coronary artery disease) I25.10 Syncope R55 AFIA (acute kidney injury) N17.9 Hx of CABG Z95.1 Hypertension I10 Diabetes E11.9 Elevated troponin R77.8
[2022-09-25 17:18] LABS: Glucose Point of Care 177 mg/dL (70-110)
[2022-09-25] MEDS: TRAMadol 50 mg Tablet PO (17:18)
--- NOTE | 2022-09-25 17:18 | XRR_ITS ---
PROCEDURE INFORMATION: Exam: XR Chest Exam date and time: 09/25/2022 4:43 PM Age: 82 years old Clinical indication: Condition or disease; Other: Evaluate for pulmonary embolism; Prior surgery; Surgery date: 6+ months; Additional info: Evalaute for pulm edema TECHNIQUE: Imaging protocol: Radiologic exam of the chest. Views: 1 view. COMPARISON: CR (CHEST, ) 09/21/2022 10:16 PM FINDINGS: Lungs: Unremarkable. No consolidation. Pleural spaces: Unremarkable. No pleural effusion. No pneumothorax. Heart/Mediastinum: Unremarkable. No cardiomegaly. Bones/joints: Sternotomy wires. XR/XR chest 1V portable [id number] IMPRESSION: No acute findings.
--- NOTE | 2022-09-25 17:44 | PC.NURSE ---
Lovenox on hold for pm dose per physician orders
--- NOTE | 2022-09-25 20:41 | PC.NURSE ---
Spoke with regarding morning dose of lovenox. Hold morning dose of lovenox due to right thigh hematoma.
[2022-09-25 21:06] LABS: Glucose Point of Care 262 mg/dL (70-110)
[2022-09-25] MEDS: morphine 4 mg/mL SDV 1 mL 2 MG IVP (22:05)
[2022-09-25] MEDS: ropinirole 1 mg Tablet PO (22:05)
[2022-09-26] VITALS (13 sets, daily range): BP systolic 105–171; BP diastolic 71–87; PULSE 68–78; RESP 18–22; TEMP 36.7–37.6; O2SAT 94–98
[2022-09-26] MEDS: TRAMadol 50 mg Tablet PO ×2 (00:53→06:34)
[2022-09-26] MEDS: morphine 4 mg/mL SDV 1 mL 2 MG IVP ×2 (03:45→11:02)
[2022-09-26 06:21] LABS: Basophils % 0.3 %; Eosinophils # 0.1 10^3/uL (0.0-0.8); Eosinophils % 2.3 %; Hematocrit 33.4 % (42.0-52.0); Hemoglobin 10.7 g/dL (11.7-16.6); Lymphocytes # 0.9 10^3/uL (0.8-4.8); Lymphocytes % 15.2 %; Mean Corpuscular Hemoglobin 30.1 pg (28.0-34.0); Mean Corpuscular Volume 93.8 fl (80-94); Mean Platelet Volume 9.4 fL (7.4-10.4); Monocytes # 0.5 10^3/uL (0.2-0.9); Monocytes % 8.4 %; Neutrophils # 4.44 10^3/uL (1.8-7.7); Neutrophils % 73.1 %; Nucleated Red Blood Cells % 0 %; Platelet Count 161 10^3/cmm (130-400); Red Blood Count 3.56 10^6/uL (4.1-5.3); Red Cell Distribution Width 15.1 % (12.1-15.1); White Blood Count 6.1 10^3/uL (4.0-10.0)
[2022-09-26 06:47] LABS: Alanine Aminotransferase 27 U/L (0-41); Albumin Level 3.1 g/dL (3.5-5.2); Alkaline Phosphatase 99 U/L (40-130); Anion Gap 14.5 (5-19); Aspartate Amino Transferase 26 U/L (0-40); Blood Urea Nitrogen 18 mg/dL (8-23); Calcium 8.4 mg/dL (8.5-10.5); Carbon Dioxide 23 mmol/L (22-29); Chloride 102 mmol/L (98-107); Globulin 2.8 g/dL (1.3-4.6); Glucose 206 mg/dL (65-115); NT Pro B Type Natriuretic Pept 1979 pg/mL (0-450); Osmolality Calculated 288 mOsm/kg (285-295); Potassium 4.5 mmol/L (3.5-5.1); Sodium 135 mmol/L (136-145); Total Bilirubin 0.6 mg/dL (0.15-1.2); Total Protein 5.9 g/dL (6.6-8.7)
[2022-09-26 06:48] LABS: Glucose Point of Care 230 mg/dL (70-110)
[2022-09-26] MEDS: insulin lispro 100 unit/1 mL SUBCUT ×3 (08:02→17:29)
[2022-09-26] MEDS: amlodipine 10 mg Tablet PO (08:03)
[2022-09-26] MEDS: isosorbide mononitrate ER 30 mg Tablet PO (08:03)
[2022-09-26] MEDS: pantoprazole DR 40 mg Tablet PO (08:03)
[2022-09-26] MEDS: aspirin 81 mg EC Tablet PO (08:03)
--- NOTE | 2022-09-26 08:26 | PM.PN ---
Subjective Subjective: Plan was patient had a syncopal episode in the hospital. His heart rate dropped very briefly into 30s. Telemetry not showing long pauses. In the hospital, he complained of on and off chest pain. Vitals/I&O/Wt Last Vital Signs Temp 98.0 F 09/26/22 07:44 Pulse 75 09/26/22 08:00 Resp 18 09/26/22 08:00 BP 153/81 09/26/22 07:44 Pulse Ox 96 09/26/22 08:00 O2 Del Method Room Air 09/26/22 08:00 O2 Flow Rate 2 09/23/22 08:22 09/25/22 09/26/22 09/26/22 22:59 06:59 14:59 Intake Total 1959 Output Total 250 / 250 Balance 360 1959 -250 / 1710 Physical Exam Narrative: GENERAL: Patient is alert, awake and oriented x3. [] NECK: No jugular vein distension. [] HEENT: No cyanosis. No icterus. No pallor. [] HEART: Irregular irregular LUNGS: Clear to auscultate bilaterally. [] ABDOMEN: Soft CENTRAL NERVOUS SYSTEM: Grossly nonfocal. [] EXTREMITIES:Has a large sized hematoma on the right thigh Data 09/27/22 05:53 09/27/22 05:53 A&P Assessment and plan (1) CAD (coronary artery disease): (2) Syncope: (3) AFIA (acute kidney injury): (4) Hx of CABG: (5) Hypertension: (6) Diabetes: (7) Elevated troponin: Plan Initial plan was to mid thigh hematoma has resolved and he is stable on anticoagulation. However patient had another syncopal episode and complained of pain on chest discomfort. Syncopal episode could be vasovagal from description however given on and off chest discomfort episodes, troponin elevation and abnormal stress test, we will proceed with coronary angiogram with possible percutaneous coronary intervention. Risks and benefits of the procedure have been discussed in detail with the patient and family. They understand it and want to proceed with the procedure. NPO Past midnight. Right thigh ultrasound did not show progression of hematoma. IV fluids overnight as creatinine is still elevated. Thank you for involving us with care of this patient. We will continue to follow. Please call with questions. Attestations Medical Necessity Statement*: Care expected to cross 2 midnights. Coding Level of Care Code Acute Code for Chg Fwd Diagnoses CAD (coronary artery disease) I25.10 Syncope R55 AFIA (acute kidney injury) N17.9 Hx of CABG Z95.1 Hypertension I10 Diabetes E11.9 Elevated troponin R77.8
[2022-09-26 11:30] LABS: Glucose Point of Care 292 mg/dL (70-110)
--- NOTE | 2022-09-26 13:00 | PC.NURSE ---
Patient was sitting on the side of the bed after standing for orthostatic bloodpressures and became nauseated. Patient then became unresponsive and heart rate began to decrease in the low 30's. Nurse called a rapid response and laid patient back in the bed. Approximately 2 minutes later patients heart rate began to increase back into the 70's and patient was then able to respond. Patient likely vasovagaled. Nurse will continue to monitor.
[2022-09-26] MEDS: sodium chloride 0.9% 1,000 ML 50 ML IV (14:08)
--- NOTE | 2022-09-26 16:23 | PM.PN ---
Subjective Subjective: Patient had an episode of syncope this evening. Patient was getting his orthostatics checks while standing up to check the blood pressure, he had bradycardia heart rate dipped down to 30s, he became unresponsive transiently. Shortly after laying in bed and raising his legs patient's heart rate is back to 75 bpm. His blood pressure at the time of evaluation is 135/66. He states he feels well right now however during the events he was dizzy. Denies any chest pain nausea vomiting or palpitations. Has been restarted on fluids after this event. Medications: Reviewed: Yes Medication Review Details: Generic Name Dose Route Start Last Admin Trade Name Miquelq PRN Reason Stop Dose Admin Amlodipine Besylat e 10 mg 09/22/22 09:00 09/24/22 08:54 Amlodipine 10 Mg Tablet PO 10 mg DAILY VENKAT Administration Aspirin 81 mg 09/22/22 09:00 09/24/22 08:54 Aspirin 81 Mg Ec Tablet PO 81 mg DAILY VENKAT Administration Enoxaparin Sodium 120 mg 09/23/22 19:00 09/24/22 06:04 Enoxaparin 120 M g/0.8 Ml Syringe SUBCUT 120 mg Q12H VENKAT Administration Insulin Human Lisp ro 0 unit 09/22/22 18:00 09/24/22 08:53 Insulin Lispro 1 00 Unit/1 Ml SUBCUT 2 unit TIDWM VENKAT Administration Protocol Isosorbide Mononit rate 30 mg 09/22/22 09:00 09/24/22 08:54 Isosorbide [place]achine itrate Er 30 Mg Ta blet PO 30 mg DAILY VENKAT Administration Pantoprazole Sodiu m 40 mg 09/22/22 09:00 09/24/22 08:[address] 40 Mg Tablet PO 40 mg DAILY VENKAT Administration Ropinirole HCl 1 mg 09/22/22 21:00 09/23/22 20:06 Ropinirole 1 Mg Tablet PO 1 mg BEDTIME VENKAT Administration Vitals/I&O/Wt Last Vital Signs Temp 98.0 F 09/26/22 07:44 Pulse 72 09/26/22 16:00 Resp 21 H 09/26/22 16:00 BP 151/87 09/26/22 16:00 Pulse Ox 98 09/26/22 16:00 O2 Del Method Room Air 09/26/22 16:00 O2 Flow Rate 2 09/23/22 08:22 09/26/22 09/26/22 09/26/22 06:59 14:59 22:59 Intake Total 240 / 240 Output Total 250 / 250 Balance -250 / 1710 240 / 240 Physical Exam Narrative: General: No acute distress, AO x3, while laying in bed HEENT: PERRLA, pupils bilaterally equal and reactive, pallors not present Chest: Scattered wheezing to auscultation bilaterally CVS: S1-S2 regular, no murmurs, no tachycardia, no gallops, no rubs Abdomen: Soft, nontender, no organomegaly, bowel sounds present Neuro: No focal deficits, no facial deformity, AO x3, power 5/5 in all limbs Extremities: Right thigh hematoma posteriorly extending from mid thigh to popliteal fossa, bluish-purple in color Data 09/26/22 06:06 09/26/22 06:06 A&P Assessment and plan (1) Syncope: (2) AFIA (acute kidney injury): (3) Contusion of left ear: (4) Hx of CABG: (5) CAD (coronary artery disease): (6) Hyperkalemia: (7) Hypertension: (8) Diabetes: Plan 82-year-old male with a past medical history of coronary artery disease, currently admitted for assessment of syncopal episode that he had at home. He has also had intermittent chest pain ongoing since May of this year. Recent history of repeated falls. #Syncope Unclear circumstances of passing out at home. Today patient had a witnessed vasovagal's episode while in the hospital. Also possible that he may have become significantly orthostatic which led to his bradycardia and hypotension. Likely that similar episodes were happening at home that led to his passing out at home. Continued on telemetry. History of atrial fibrillation. Currently he is rate controlled. CT head showing nonspecific white matter changes possibly chronic. Carotid artery ultrasound with moderate plaques at bifurcations and proximal ICA less than 50% stenosis. TSH within normal range Patient has intermittent confusion, suspect possible hospital delirium or underlying dementia. Frequent reorientation, family currently at bedside. Start IV fluid normal saline at 75 cc an hour given orthostatic drop today #Chest pain with elevated troponins. EKG without any acute ST-T wave changes. Baseline troponin upon admission at 36, trended up to 74 and then 77. Underwent stress test today which is concerning for ischemia in the LAD territory. Together with syncopal episode today, concern for underlying CAD/NSTEMI Plan for cardiac cath tomorrow Patient is currently on treatment with aspirin 81 mg p.o. daily, reported allergy to statins Holding lovenox due to thigh hematoma 2D Echo : LV systolic function is normal with EF of 60 to 65%.Mild mitral regurgitation,?Mild tricuspid regurgitation Mild pulmonary hypertension. cardiology consult #Right thigh posterior hematoma. Per predates admission by about 1 week, patient himself does not know timeline of hematoma formation. Approximate 3.5 x 5.5 x 11.5 cm hematoma in the right adductor longus muscle.? In retrospect, this is unchanged or slightly smaller than on the CTA performed on 09/24/2022. Eliquis is currently on hold. Lovenox on hold Hemoglobin has been stable No active bleeding identified on recent CTA #Peripheral artery disease lower extremity arterial duplex,SUMMER:Slightly diminished resting SUMMER bilaterally, suggestive of mild peripheral artery disease. Markedly elevated velocity in the right dorsalis pedis artery, suggestive of greater than 60% stenosis.Elevated velocity in the left posterior tibial artery, may?suggest hemodynamically significant stenosis. Full code DVT prophylaxis: Currently on full dose lovenox Attestations Medical Necessity Statement*: Eventa as above, planned cardiac cath tomorrow, started IVF Coding Level of Care Code Acute Code for Chg Fwd Diagnoses Syncope R55 AFIA (acute kidney injury) N17.9 Contusion of left ear S00.432A Hx of CABG Z95.1 CAD (coronary artery disease) I25.10 Hyperkalemia E87.5 Hypertension I10 Diabetes E11.9
[2022-09-26 16:41] LABS: Glucose Point of Care 193 mg/dL (70-110)
--- NOTE | 2022-09-26 19:08 | PC.NURSE ---
Physician orders Insert berumen catheter
[2022-09-26] MEDS: ropinirole 1 mg Tablet PO (21:26)
[2022-09-27] VITALS (17 sets, daily range): BP systolic 118–162; BP diastolic 73–83; PULSE 71–89; RESP 16–29; TEMP 36.7–37.4; O2SAT 92–98
[2022-09-27 03:38] LABS: Glucose Point of Care 265 mg/dL (70-110)
[2022-09-27] MEDS: sodium chloride 0.9% 1,000 ML 50 ML IV (03:49)
--- NOTE | 2022-09-27 06:25 | XACV_ITS ---
Exam Room: [facility] Ht: 173 cm Wt: 136 kg BSA: 2.63 m2 Gender: Male : 1940 Any Known Allergies: Other Exam Priority: Routine Procedure(s): Procedure Description: Diagnostic procedure Procedure Description: Left Heart Catheterization Procedure Description: KIM Graft Catheterization Procedure Description: ELLIE Graft Catheterization Procedure Description: Coronary Angiography Diagnostic Cath Status: Urgent Diagnostic Findings * INDICATION: Syncope/ Abnormal stress test/ troponin elevation. * Distal left main artery has severe 70% stenosis. * Right Coronary Artery has mild to moderate diffuse luminal irregularities. * Bypass grafts: Radial artery graft to OM: Patent KIM to LAD: Patent. * Proximal Left Anterior Descending: total occlusion, AZ: 0 flow. * Proximal Circumflex: total occlusion, AZ: 0 flow. * Coronary angiography shows right dominance. Conclusions 1. Severe multivessel teller coronary artery disease. Patent KIM to LAD and patent radial artery graft to OM.. 2. Patient has prior CABG. Recommendations * Aggressive risk factor modification. * Outpatient cardiology follow up in 2 weeks. Interventional RX Recommendation: medical therapy and/or counseling Diagnostic RX Recommendation: medical therapy and/or counseling Pressures Phase:Rest AO : 135 / 63 ( 86 ) @ 10:49:00 AM 125 / 43 ( 73 ) @ 10:53:00 AM 134 / 53 ( 84 ) @ 11:05:00 AM 141 / 45 ( 84 ) @ 11:05:00 AM LV : 148 / -11 / 9 @ 11:05:00 AM 150 / -11 / 8 @ 11:05:00 AM Valves Phase:DefaultPhase AV : 14.0 @ 10:33:47 AM 14.0 @ 10:33:47 AM AV Mean Gradient: 14.0 @ 10:33:47 AM Clinical Evaluation EBL: 5mL-10mL Procedural Details Procedure Consent Obtained. Admit Source: Transfer [facility] facility. Pre-Procedure Time Out. Identified patient by full name and date of as verbalized by the patient/guarantor. Does the consent match the physician's order: Yes. Accurate & Complete Informed Consent: Yes. Inpatient/Outpatient History & Physical on Chart: Yes. If H&P is completed, is and addenduem needed: No; If yes, is the addendum complete: N/A. Visualize and Verify Site with Patient/Guarantor: N/A. Relevant Radiology Images available: Yes. The risks, benefits, and alternatives of sedation and/or procedure were discussed by physician. The patient agrees to continue. Procedure started. [facility] Clinical Fraility Score: 5: Mildly Frail. 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 Chest Pain Symptom Assessment: Typical Angina Symptoms. Correct patient, site and procedure confirmed by cath team. Current diagnosis: Syncope, Abnormal stress test, Troponin elevation. PERRLA. 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 Lungs clear x 5 lobes. IV Site on Arrival: 20 gauge in the left wrist. IV Fluids: 0.9% NaCl at 75ml/hr. 300 mL infused prior to laborer pipeline. Oxygen started at 2liters/min via nasal canula. Physician notified. Baseline sample Acquired. HR: 83 BPM. right groin was prepped with chloroprep then draped in the usual sterile fashion. Physician arrived. Pre Procedural Pulses: bilateral posterior tibial was 1+. Pre Procedural Pulses: bilateral dorsalis pedis was 1+. Physician scrubbed in. Immediate Pre-Procedure Time Out. Correct Patient: Yes; Correct Procedure: Yes; Correct Site: Yes; Correct Patient Position: Yes; Correct Supplies: Yes; Dried Flammable Prep: Yes; Blood Products Available: No;. Lidocaine 1% infiltrated to the right groin. Arterial access obtained with micropuncture set. A 5 nepalese JL4 catheter in over wire. Multiple views taken of left coronary artery. Catheter removed over the standard wire. A 5 nepalese JR4 catheter in over wire. Multiple views taken of right coronary artery. Radial artery graft to OM visualized and patent. KIM to LAD visualized. Standard wire in through catheter, attempting to cross aross aortic valve. Catheter seated in LV. Wire out. EDP Sample taken: LV 148/-12,9; HR: 69 BPM; SpO2: 99%. Pullback taken: LV 150/-12,8; AO 134/53(84); Mean: 14mmHg, Peak to Peak: 14mmHg, SEP: 15sec/min; HR: 72 BPM; SpO2: 98%. A Right femoral angiogram was performed to determine safe placement of closure device. Physician scrubbed out. Post Procedure: Pulses reassessed and unchanged. PERRLA. 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 No VTE prophylaxis required. Medication's Wasted: Heparin = 1000 units. Medication's Wasted: Other = Versed 3 mg. Medication's Wasted: Other = Fentanyl 50 mcg. Total IV fluids: 40 mL. Post-op diagnosis: Patent Bypass grafts, Severe teller CAD. Complications: None. Estimated blood loss: 5mL-10mL. Responsiveness - Normal response to verbal stimuli; alert and oriented, PERRLA. Airway - Unaffected, no intervention required; spontaneous ventilation. Circulation: W/N/L, pulses unchanged. Nausea/Vomiting: N/A. A Manual Compression was successful obtaining hemostatsis at the Right Femoral artery insertion site. Procedure completed. Patient transferred by bed to 1st floor. Vital chart was stopped. Access Site Site: Right Femoral artery Sheath Size: 6 Fr Hemostasis Method: Manual Compression Hemostasis Success: Successful Procedure Medications Start: 9:44 AM Stop: 9:44 AM Medication: Versed Amount: 1 mg Route: I.V. Start: 9:44 AM Stop: 9:44 AM Medication: Fentanyl Amount: 25 mcg Route: I.V. I, the attending physician, have reviewed and verified all procedure medications. Yes, all medications given per verbal order History/Risk Factors Hypertension: Yes Dyslipidemia: No Peripheral Arterial Disease (PAD): No Myocardial Infarction (WI): No Obesity: No Renal Disease: No Prior Interventions PCI: No CABG: Yes Valve Surgery: No Report Signatures Finalized by Samson Brock MD on 10/08/2022 01:24 PM
[2022-09-27 06:28] LABS: Basophils % 0.1 %; Eosinophils # 0.2 10^3/uL (0.0-0.8); Eosinophils % 2.7 %; Hematocrit 29.7 % (42.0-52.0); Hemoglobin 9.2 g/dL (11.7-16.6); Lymphocytes % 13.7 %; Mean Corpuscular Hemoglobin 29.1 pg (28.0-34.0); Mean Platelet Volume 9.3 fL (7.4-10.4); Monocytes # 0.6 10^3/uL (0.2-0.9); Monocytes % 7.8 %; Neutrophils # 5.31 10^3/uL (1.8-7.7); Neutrophils % 74.9 %; Nucleated Red Blood Cells % 0 %; Platelet Count 160 10^3/cmm (130-400); Red Blood Count 3.16 10^6/uL (4.1-5.3); Red Cell Distribution Width 15.2 % (12.1-15.1); White Blood Count 7.1 10^3/uL (4.0-10.0)
[2022-09-27 06:33] LABS: Glucose Point of Care 257 mg/dL (70-110)
[2022-09-27 06:54] LABS: Alanine Aminotransferase 45 U/L (0-41); Albumin Level 2.8 g/dL (3.5-5.2); Alkaline Phosphatase 96 U/L (40-130); Aspartate Amino Transferase 44 U/L (0-40); Blood Urea Nitrogen 22 mg/dL (8-23); Calcium 8.2 mg/dL (8.5-10.5); Carbon Dioxide 21 mmol/L (22-29); Chloride 104 mmol/L (98-107); Globulin 2.9 g/dL (1.3-4.6); Glucose 222 mg/dL (65-115); Osmolality Calculated 292 mOsm/kg (285-295); Sodium 136 mmol/L (136-145); Total Bilirubin 0.5 mg/dL (0.15-1.2); Total Protein 5.7 g/dL (6.6-8.7)
[2022-09-27 06:57] LABS: Anion Gap 15.8 (5-19); Potassium 4.8 mmol/L (3.5-5.1)
--- NOTE | 2022-09-27 08:15 | PC.NURSE ---
Patient has NPO order 09/27 prior to director of labor and delivery, Dr. Brock said morning meds were okay to give.
[2022-09-27 08:18] LABS: Glucose Point of Care 242 mg/dL (70-110)
[2022-09-27] MEDS: isosorbide mononitrate ER 30 mg Tablet PO (08:52)
[2022-09-27] MEDS: pantoprazole DR 40 mg Tablet PO (08:52)
[2022-09-27] MEDS: aspirin 81 mg EC Tablet PO (08:52)
--- NOTE | 2022-09-27 09:40 | W.PM.OPSUD ---
Surgery/Procedure H&P Update DATE OF PROCEDURE: September 27, 2022 DATE H&P PERFORMED: 09/25/22 H&P UPDATE INFORMATION: I have reviewed H&P completed within last 30 days, I have examined patient prior to procedure and Changes to prior documentation as noted here CHANGES TO PREVIOUS DOCUMENTATION: Initial plan was to proceed with medical therapy but because of recurrent syncopal episodes and chest pain, decision made to perform coronary angiogram with possible percutaneous coronary intervention PREOP DIAGNOSIS: Syncope/ Abnormal stress test/ troponin elevation PRIMARY INDICATION FOR PROCEDURE: Syncope/ Abnormal stress test/ troponin elevation PLANNED PROCEDURE: Left heart cath with possible percutaneous coronary intervention PATIENT REASSESSED PRIOR TO SEDATION, WITH NO CHANGE NOTED: Yes PHYSICAL EXAM: alert, oriented x 3 and clear to auscultation bilaterally OTHER PERTINENT EXAM FINDINGS: Irregularly irregular AIRWAY EVAL/ANESTHESIA PLAN: normal airway, ASA IV, Local Anesthesia, Risks, benefits & alternatives of sedation and/or procedure discussed and Patient agrees to continue as planned ADDITIONAL INFORMATION: Moderate sedation
--- NOTE | 2022-09-27 11:01 | PM.PN ---
Subjective Subjective: Patient is stable. Her syncopal episode yesterday. Coronary angiogram today shows patent KIM to LAD and radial graft to SVG's. [place] RCA is patent. Denies chest pain today. Vitals/I&O/Wt Last Vital Signs Temp 98.4 F 09/27/22 08:00 Pulse 77 09/27/22 08:00 Resp 16 09/27/22 08:00 BP 149/74 09/27/22 08:00 Pulse Ox 96 09/27/22 08:00 O2 Del Method Nasal Cannula 09/27/22 08:00 O2 Flow Rate 2 09/27/22 08:00 09/26/22 09/27/22 09/27/22 22:59 06:59 14:59 Intake Total 460 / 700 683.333 / 1383.333 0 / 0 Output Total 550 / 550 550 / 1100 Balance -90 / 150 133.333 / 283.333 0 / 0 Physical Exam Narrative: GENERAL: Patient is alert, awake and oriented x3. [] NECK: No jugular vein distension. [] HEENT: No cyanosis. No icterus. No pallor. [] HEART: Irregular irregular LUNGS: Clear to auscultate bilaterally. [] CENTRAL NERVOUS SYSTEM: Grossly nonfocal. [] EXTREMITIES:Has a large sized hematoma on the right thigh Urinary Catheter Management: Perez: Cath Placed During This Visit: yes Reason for Continuing Indwelling Catheter: Required Immobilization for Trauma or Surgery or Anesthesia Urinary Catheter Date of Insertion: 09/26/22 Urinary Catheter Time of Insertion: 18:00 Data 09/27/22 05:53 09/27/22 05:53 Micro: Microbiology 09/22/22 04:34 Blood Culture - Final Blood NO GROWTH AFTER 5 DAYS 09/22/22 04:29 Blood Culture - Final Blood NO GROWTH AFTER 5 DAYS A&P Assessment and plan (1) CAD (coronary artery disease): (2) Syncope: (3) AFIA (acute kidney injury): (4) Hx of CABG: (5) Hypertension: (6) Diabetes: (7) Elevated troponin: Plan Coronary angiogram shows patent radial graft to SVG and KIM to LAD. [place] RCA is patent. Syncope is not explained by CAD. Likely vasovagal/orthostatic. We will continue IV fluids. Thank you for involving us with care of this patient. We will continue to follow. Please call with questions. Attestations Medical Necessity Statement*: Care expected to cross 2 midnights. Coding Level of Care Code Acute Code for Chg Fwd Diagnoses CAD (coronary artery disease) I25.10 Syncope R55 AFIA (acute kidney injury) N17.9 Hx of CABG Z95.1 Hypertension I10 Diabetes E11.9 Elevated troponin R77.8
[2022-09-27 11:29] LABS: Glucose Point of Care 253 mg/dL (70-110)
[2022-09-27 11:41] LABS: Glucose Point of Care 223 mg/dL (70-110)
[2022-09-27] MEDS: insulin lispro 100 unit/1 mL SUBCUT ×2 (11:46→17:38)
[2022-09-27] MEDS: sodium chloride 0.9% 1,000 ML 100 ML IV ×2 (11:47→18:45)
--- NOTE | 2022-09-27 16:28 | PC.ADMIT ---
[email or web address] Admission Note: The patient,Andrez Olvera,82 y/o, was given written information regarding hospital policies, unit procedures and contact persons. Patient's smoking status: never smoked. Vital Signs - 8 hr 09/27/22 12:00 09/27/22 11:20 09/27/22 12:00 Pulse Rate 77 74 77 Respiratory Rate 16 18 16 Blood Pressure 118/76 118/76 Blood Pressure [Right Arm] Pulse Oximetry 97 Oxygen Delivery Method Room Air Nasal Cannula Oxygen Flow Rate 3 09/27/22 12:00 09/27/22 13:00 09/27/22 14:20 Pulse Rate 89 74 73 Respiratory Rate 18 18 16 Blood Pressure Blood Pressure [Right Arm] 132/74 132/73 Pulse Oximetry 98 97 Oxygen Delivery Method Nasal Cannula Nasal Cannula Nasal Cannula Oxygen Flow Rate 3 3 3 09/27/22 14:22 09/27/22 14:00 Pulse Rate 77 73 Respiratory Rate 18 Blood Pressure 132/74 Blood Pressure [Right Arm] Pulse Oximetry 96 Oxygen Delivery Method Nasal Cannula Oxygen Flow Rate 3
[2022-09-27 17:25] LABS: Glucose Point of Care 240 mg/dL (70-110)
--- NOTE | 2022-09-27 18:31 | PC.NURSE ---
Addendum entered by KADIE Cano 09/27/22 18:42: Vital signs checked as well, all within normal limits. Original Note: Patient and reported to nurse that visual hallucinations has been going on since this morning, 09/27/22. Patient stated I am seeing spider webs up in the ceiling . Vitals and neurological status was assessed and the patient was alert and oriented X4. Hospitalist was notified.
[2022-09-27] MEDS: ropinirole 1 mg Tablet PO (20:21)
[2022-09-27] MEDS: temazepam 15 mg Capsule PO (20:21)
--- NOTE | 2022-09-27 22:37 | P.PN_ITS ---
Subjective Subjective: underwent coronary angiogram today, no stentable lesions found, cotninues to be on IVF . No repeat events of bradycardia or hypotension Medications: Reviewed: Yes Medication Review Details: Generic Name Dose Route Start Last Admin Trade Name Cheri PRN Reason Stop Dose Admin Amlodipine Besylat e 10 mg 09/22/22 09:00 09/24/22 08:54 Amlodipine 10 Mg Tablet PO 10 mg DAILY VENKAT Administration Aspirin 81 mg 09/22/22 09:00 09/24/22 08:54 Aspirin 81 Mg Ec Tablet PO 81 mg DAILY VENKAT Administration Enoxaparin Sodium 120 mg 09/23/22 19:00 09/24/22 06:04 Enoxaparin 120 M g/0.8 Ml Syringe SUBCUT 120 mg Q12H VENKAT Administration Insulin Human Lisp ro 0 unit 09/22/22 18:00 09/24/22 08:53 Insulin Lispro 1 00 Unit/1 Ml SUBCUT 2 unit TIDWM VENKAT Administration Protocol Isosorbide Mononit rate 30 mg 09/22/22 09:00 09/24/22 08:54 Isosorbide Stanley itrate Er 30 Mg Ta blet PO 30 mg DAILY VENKAT Administration Pantoprazole Sodiu m 40 mg 09/22/22 09:00 09/24/22 08:[address] 40 Mg Tablet PO 40 mg DAILY VENKAT Administration Ropinirole HCl 1 mg 09/22/22 21:00 09/23/22 20:06 Ropinirole 1 Mg Tablet PO 1 mg BEDTIME VENKAT Administration Vitals/I&O/Wt Last Vital Signs Temp 98.1 F 09/27/22 20:00 Pulse 71 09/27/22 22:00 Resp 23 H 09/27/22 22:00 BP 149/74 09/27/22 22:00 Pulse Ox 96 09/27/22 22:00 O2 Del Method Nasal Cannula 09/27/22 19:39 O2 Flow Rate 2 09/27/22 19:39 09/27/22 09/27/22 09/27/22 06:59 14:59 22:59 Intake Total 683.333 / 1383.333 405 / 405 1036.667 / 1441.667 Output Total 550 / 1100 700 / 700 Balance 133.333 / 283.333 405 / 405 336.667 / 741.667 Physical Exam Narrative: General: No acute distress, AO x3, while laying in bed HEENT: PERRLA, pupils bilaterally equal and reactive, pallors not present Chest: Scattered wheezing to auscultation bilaterally CVS: S1-S2 regular, no murmurs, no tachycardia, no gallops, no rubs Abdomen: Soft, nontender, no organomegaly, bowel sounds present Neuro: No focal deficits, no facial deformity, AO x3, power 5/5 in all limbs Extremities: Right thigh hematoma posteriorly extending from mid thigh to popliteal fossa, bluish-purple in color Urinary Catheter Management: Perez: Cath Placed During This Visit: yes Reason for Continuing Indwelling Catheter: Accurate Measurement of Urinary Output in Critically Ill Patients Urinary Catheter Date of Insertion: 09/26/22 Urinary Catheter Time of Insertion: 18:00 Data 09/27/22 05:53 09/27/22 05:53 Micro: Microbiology 09/22/22 04:34 Blood Culture - Final Blood NO GROWTH AFTER 5 DAYS 09/22/22 04:29 Blood Culture - Final Blood NO GROWTH AFTER 5 DAYS A&P Assessment and plan (1) Syncope: (2) AFIA (acute kidney injury): (3) Contusion of left ear: (4) Hx of CABG: (5) CAD (coronary artery disease): (6) Hyperkalemia: (7) Hypertension: (8) Diabetes: Plan 82-year-old male with a past medical history of coronary artery disease, currently admitted for assessment of syncopal episode that he had at home. He has also had intermittent chest pain ongoing since May of this year. Recent history of repeated falls. #Syncope Unclear circumstances of passing out at home. Today patient had a witnessed vasovagal's episode while in the hospital. Also possible that he may have become significantly orthostatic which led to his bradycardia and hypotension. Likely that similar episodes were happening at home that led to his passing out at home. Continued on telemetry. History of atrial fibrillation. Currently he is rate controlled. CT head showing nonspecific white matter changes possibly chronic. Carotid artery ultrasound with moderate plaques at bifurcations and proximal ICA less than 50% stenosis. TSH within normal range Patient has intermittent confusion, suspect possible hospital delirium or underlying dementia. Frequent reorientation, family currently at bedside. Start IV fluid normal saline at 75 cc an hour given orthostatic drop today #Chest pain with elevated troponins. EKG without any acute ST-T wave changes. Baseline troponin upon admission at 36, trended up to 74 and then 77. Underwent stress test today which is concerning for ischemia in the LAD territory. Together with syncopal episode today, concern for underlying CAD/NSTEMI Plan for cardiac cath tomorrow Patient is currently on treatment with aspirin 81 mg p.o. daily, reported allergy to statins Holding lovenox due to thigh hematoma 2D Echo : LV systolic function is normal with EF of 60 to 65%.Mild mitral regurgitation,?Mild tricuspid regurgitation Mild pulmonary hypertension. cardiology consult #Right thigh posterior hematoma. Per predates admission by about 1 week, patient himself does not know timeline of hematoma formation. Approximate 3.5 x 5.5 x 11.5 cm hematoma in the right adductor longus muscle.? In retrospect, this is unchanged or slightly smaller than on the CTA performed on 09/24/2022. Eliquis is currently on hold. Lovenox on hold Hemoglobin has been stable No active bleeding identified on recent CTA #Peripheral artery disease lower extremity arterial duplex,SUMMER:Slightly diminished resting SUMMER bilaterally, suggestive of mild peripheral artery disease. Markedly elevated velocity in the right dorsalis pedis artery, suggestive of greater than 60% stenosis.Elevated velocity in the left posterior tibial artery, may?suggest hemodynamically significant stenosis. Full code DVT prophylaxis: Currently on full dose lovenox Plan for today: s/p cardiac cath. Monitor on tele. No repeat bradycardic or hypotensive events today, on bedrets until 6pm, thereafter ambulate. Plan for event monitor at discharge, anticipated in [place] next 24 hrs Attestations Medical Necessity Statement*: s/p cardiac cath today , anticipate discharge in the upcoming 24 hrs with event monitor Coding Level of Care Code Acute Code for Chg Fwd Diagnoses Syncope R55 AFIA (acute kidney injury) N17.9 Contusion of left ear S00.432A Hx of CABG Z95.1 CAD (coronary artery disease) I25.10 Hyperkalemia E87.5 Hypertension I10 Diabetes E11.9
[2022-09-28] VITALS (11 sets, daily range): BP systolic 143–181; BP diastolic 62–84; PULSE 68–84; RESP 11–24; TEMP 36.6–36.9; O2SAT 78–99
[2022-09-28 05:29] LABS: Basophils % 0.2 %; Eosinophils # 0.2 10^3/uL (0.0-0.8); Hematocrit 28.9 % (42.0-52.0); Hemoglobin 8.7 g/dL (11.7-16.6); Lymphocytes # 0.9 10^3/uL (0.8-4.8); Lymphocytes % 13.5 %; Mean Corpuscular HGB Conc 30.1 g/dL (30.0-36.0); Mean Corpuscular Hemoglobin 29.5 pg (28.0-34.0); Mean Platelet Volume 9.5 fL (7.4-10.4); Monocytes # 0.5 10^3/uL (0.2-0.9); Monocytes % 7.8 %; Neutrophils % 74.5 %; Nucleated Red Blood Cells % 0 %; Platelet Count 157 10^3/cmm (130-400); Red Blood Count 2.95 10^6/uL (4.1-5.3); Red Cell Distribution Width 15.3 % (12.1-15.1); White Blood Count 6.3 10^3/uL (4.0-10.0)
[2022-09-28 05:34] LABS: Glucose Point of Care 258 mg/dL (70-110)
[2022-09-28 05:45] LABS: Alanine Aminotransferase 52 U/L (0-41); Albumin Level 3.2 g/dL (3.5-5.2); Alkaline Phosphatase 103 U/L (40-130); Anion Gap 13.3 (5-19); Aspartate Amino Transferase 40 U/L (0-40); Blood Urea Nitrogen 19 mg/dL (8-23); Calcium 8.6 mg/dL (8.5-10.5); Carbon Dioxide 25 mmol/L (22-29); Chloride 104 mmol/L (98-107); Globulin 2.8 g/dL (1.3-4.6); Glucose 200 mg/dL (65-115); Osmolality Calculated 294 mOsm/kg (285-295); Potassium 4.3 mmol/L (3.5-5.1); Sodium 138 mmol/L (136-145); Total Bilirubin 0.5 mg/dL (0.15-1.2)
[2022-09-28 06:18] LABS: Glucose Point of Care 230 mg/dL (70-110)
[2022-09-28] MEDS: insulin lispro 100 unit/1 mL SUBCUT ×2 (07:50→13:12)
--- NOTE | 2022-09-28 08:56 | P.PN_ITS ---
Subjective Subjective: Patient is stable. No chest pain. no more syncopal episodes Vitals/I&O/Wt Last Vital Signs Temp 98 F 09/28/22 07:34 Pulse 69 09/28/22 07:34 Resp 19 H 09/28/22 07:34 BP 181/62 09/28/22 07:34 Pulse Ox 99 09/28/22 07:34 O2 Del Method Nasal Cannula 09/28/22 07:34 O2 Flow Rate 2 09/27/22 19:39 09/27/22 09/28/22 09/28/22 22:59 06:59 14:59 Intake Total 1361.667 / 1766.667 100 / 1866.667 360 / 360 Output Total 700 / 700 650 / 1350 Balance 661.667 / 1066.667 -550 / 516.667 360 / 360 Physical Exam Narrative: GENERAL: Patient is alert, awake and oriented x3. [] NECK: No jugular vein distension. [] HEENT: No cyanosis. No icterus. No pallor. [] HEART: Irregular irregular LUNGS: Clear to auscultate bilaterally. [] CENTRAL NERVOUS SYSTEM: Grossly nonfocal. [] EXTREMITIES:Has a large sized hematoma on the right thigh Urinary Catheter Management: Perez: Cath Placed During This Visit: yes Reason for Continuing Indwelling Catheter: Accurate Measurement of Urinary Output in Critically Ill Patients Urinary Catheter Date of Insertion: 09/26/22 Urinary Catheter Time of Insertion: 18:00 Data 09/28/22 04:09 09/28/22 04:09 Micro: Microbiology 09/22/22 04:34 Blood Culture - Final Blood NO GROWTH AFTER 5 DAYS 09/22/22 04:29 Blood Culture - Final Blood NO GROWTH AFTER 5 DAYS A&P Assessment and plan (1) CAD (coronary artery disease): (2) Syncope: (3) AFIA (acute kidney injury): (4) Hx of CABG: (5) Hypertension: (6) Diabetes: (7) Elevated troponin: Plan Coronary angiogram shows patent radial graft to SVG and KIM to LAD. [place] RCA is patent. Syncope is not explained by CAD. Likely vasovagal/orthostatic. Event monitor at discharge Keep holding anticoagulation secondary to recent hematoma. Can be restarted as outpatient. Thank you for involving us with care of this patient. Please call with questions. Attestations Medical Necessity Statement*: Care expected to cross 2 midnights. Coding Level of Care Code Acute Code for Chg Fwd Diagnoses CAD (coronary artery disease) I25.10 Syncope R55 AFIA (acute kidney injury) N17.9 Hx of CABG Z95.1 Hypertension I10 Diabetes E11.9 Elevated troponin R77.8
[2022-09-28] MEDS: aspirin 81 mg EC Tablet PO (09:25)
[2022-09-28] MEDS: isosorbide mononitrate ER 30 mg Tablet PO (09:25)
[2022-09-28] MEDS: pantoprazole DR 40 mg Tablet PO (09:25)
--- NOTE | 2022-09-28 10:38 | PC.NURSE ---
Noted pt had a 4 sec pause, afib Check on pt. pt is in bed on his left side, and kitchen staff at bedside. pt stated he feels okay. pt is awake and talking to staff. Gauge And Weigh Machine Adjuster notified. tele strip printed.
--- NOTE | 2022-09-28 11:35 | PC.NURSE ---
Urinary catheter removed 09/28. 10 mls out of balloon, catheter intact. Patient handled well.
[2022-09-28 12:08] LABS: Glucose Point of Care 265 mg/dL (70-110)
--- NOTE | 2022-09-28 14:08 | PC.NURSE ---
Patient had a 4 second pause in heart rate while resting in bed, asymptomatic. Rock Singer and hospitalist was informed of the 4 second pause in heart rate and vital signs following. Patient and spouse was educated before discharge on syncope episodes and signs and symptoms to report. The patient and spouse was also educated on preventing falls at home and orthostatic hypotension. Upon discharge the patient was taken to the [facility] to be fitted and educated on an event monitor.
--- NOTE | 2022-09-28 17:10 | PM.DCS ---
Discharge Providers Date of Admission: 09/22/22 00:31 Date of Discharge: September 28, 2022 Attending Provider at Admission: Gaby Rebollar MD Attending Provider at Discharge: Alyssa Shay MD Primary Care Provider: Greg Medeiros DO Diagnoses at Discharge Discharge Diagnosis (1) Syncope: Status: Acute (2) AFIA (acute kidney injury): Status: Acute (3) Contusion of left ear: Status: Acute (4) Hx of CABG: Status: Acute (5) CAD (coronary artery disease): Status: Acute (6) Hyperkalemia: Status: Acute (7) Hypertension: Status: Acute (8) Diabetes: Status: Acute (9) Abnormal stress test: Status: Acute Reason for Visit Reason for Visit: SYNCOPAL EPISODE Hospital Course Hospital Course [id number] male with a past medical history of coronary artery disease, history of ?? PE on Eliquis currently admitted for assessment of syncopal episode that he had at home.? He has also had intermittent chest pain ongoing since May of this year.? Recent history of repeated falls. #Recurrent Syncope Patient was admitted to the hospital on September 22 with a syncopal episode in his bathroom. He had passed out in the shower, patient did not recall most events except feeling dizzy prior to the fall. When he came to he was on the floor of his bathroom, called out to his who brought him to the hospital. Patient also had a witnessed vasovagal's episode while in the hospital on September 26. This episode happened while his orthostatic blood pressures were being checked. Patient was noted to have bradycardia and hypotension and became unresponsive. Symptoms resolved within a few minutes after being placed back in bed in Trendelenburg position. Per patient may have additionally passed out while being on his tractor a few days prior to being admitted to the hospital. Overall appeared that patient had been having recurrent episodes of syncope. He was monitored on telemetry.? Patient had atrial fibrillation noted with episodes of bradycardia and pauses. All of the pauses did not correlate with syncopal episodes. Event monitor has been arranged at discharge to determine frequency of these bradycardic episodes. He is not currently on any rate limiting medications. CT head showing nonspecific white matter changes possibly chronic. Carotid artery ultrasound with moderate plaques at bifurcations and proximal ICA less than 50% stenosis. TSH within normal range Patient had intermittent confusion during the stay here, suspect possible hospital delirium or underlying dementia. Frequent reorientation, family currently at bedside helps the patient. Multiple times orthostatics were checked, his blood pressure was maintained except during episode of bradycardia which led to a drop in blood pressure. #Chest pain with elevated troponins. # Abnormal stress test EKG without any acute ST-T wave changes. Baseline troponin upon admission at 36, trended up to 74 and then 77. Underwent stress test on September 25 which is concerning for ischemia in the LAD territory. Together with syncopal episode there was concern for underlying CAD/NSTEMI He underwent cardiac cath on September 27 which did not find any obstructive lesions. Patient is currently on treatment with aspirin 81 mg p.o. daily, reported allergy to statins. Aspirin has been placed on hold for the next week until follow-up with cardiology due to a large right thigh hematoma currently. Holding Eliquis at discharge due to thigh hematoma 2D Echo :?LV systolic function is normal with EF of 60 to 65%.Mild mitral regurgitation,?Mild tricuspid regurgitation Mild pulmonary hypertension. cardiology consult was obtained during admission #Right thigh posterior hematoma. Per predates admission by about 1 week, patient himself does not know timeline of hematoma formation. Approximate 3.5 x 5.5 x 11.5 cm hematoma in the right adductor longus muscle Eliquis is currently on hold. Aspirin also on hold Hemoglobin has drifted down slightly from 11.6 on admission to 8.7 at discharge. No active bleeding identified on recent CTA #Peripheral artery disease lower extremity arterial duplex,SUMMER:Slightly diminished resting SUMMER bilaterally, suggestive of mild peripheral artery disease. Markedly elevated velocity in the right dorsalis pedis artery, suggestive of greater than 60% stenosis.Elevated velocity in the left posterior tibial artery, may?suggest hemodynamically significant stenosis. Recommended outpatient follow-up with cardiology. Physical Exam Narrative: General: No acute distress, AO x3 HEENT: PERRLA, pupils bilaterally equal and reactive, pallors not present Chest: Normal vesicular breath sounds, no added sounds, equal good air entry bilaterally CVS: S1-S2 regular, no murmurs, no tachycardia, no gallops, no rubs Abdomen: Soft, nontender, no organomegaly, bowel sounds present Neuro: No focal deficits, no facial deformity, AO x3, power 5/5 in all limbs Urinary Catheter Management: Perez: Cath Placed During This Visit: yes, but has since been removed by the nurse Reason for Continuing Indwelling Catheter: Decision to DC Catheter Urinary Catheter Date of Insertion: 09/26/22 Urinary Catheter Time of Insertion: 18:00 Date Urinary Catheter Removed: 09/28/22 Time Urinary Catheter Discontinued: 11:32 Discharge Data Studies Completed and Pending Completed Studies During Hospitalization Category Date Time Status CT cervical spin wo con* [id number] Stat Cat Scan 09/21/22 21:[address] head wo con* [id number] Stat Cat Scan 09/21/22 21:32 Completed CTA abdominal aorta [CT angio abd aorta runof [id number]] Cat Scan 09/24/22 10:54 Completed Routine CXRP [XR chest 1V portable [id number]] Routine Exams 09/25/22 17:18 Completed Cardiac Stress Test MIBI [Sestamibi Stress Test Request Exams 09/25/22 06:45 Draft ] Routine XR chest 1V portable [id number] Stat Exams 09/21/22 21:32 Completed XR hip RT 2-3V wo/w pel* [id number] Stat Exams 09/21/22 21:32 Completed NM shyann perf SPECT r/s* [id number] Routine Nuc Med 09/25/22 13:14 Completed CV ankle brachial index 23909 Routine Ultrasound 09/25/22 10:53 Completed CV carotid duplex BI* [id number] Routine Ultrasound 09/22/22 11:21 Completed CV. echo wo/w contrast [id number] Routine Ultrasound 09/22/22 02:48 Completed US arterial duplex lower extremity bilat [CV arterial Ultrasound 09/22/22 11:19 [place] [id number]] Routine US renal BI* [id number] Stat Ultrasound 09/21/22 23:24 Completed US soft tissue/extremity [id number] Routine Ultrasound 09/25/22 17:00 Completed Pending at discharge Category Date Time Status [employer] request for service Routine Exams 09/27/22 06:25 Taken Cardiac Stress Test MIBI [Sestamibi Stress Test Request Exams 09/23/22 13:14 Stop Req ] Routine Radiology Impressions Cervical Spine CT 09/21/22 21:32 IMPRESSION: No acute spine fracture-subluxation. Multilevel disc disease and chronic endplate/facet disease with spondylosis as described above. No significant central canal stenosis related to osseous elements. Head CT 09/21/22 21:32 IMPRESSION: 1. Nonspecific white matter changes as described which may be chronic. However clinical correlation is needed. Otherwise comparison prior study/follow-up exam may be helpful. 2. No acute intracranial findings otherwise. 3. Sinus findings as above. Hip/Pelvis X-Ray 09/21/22 21:32 IMPRESSION: 1. No acute findings. 2. If there is a strong clinical concern for an occult fracture, followup exam or CT/MRI correlation may also be considered. Renal Ultrasound 09/21/22 23:24 IMPRESSION: 1. Small right kidney with renal cortical thinning. 2. Bilateral simple renal cysts. 3. Nonobstructing 6.6 mm left renal calculus. 4. The patient was unable void there in the current examination. Aorta w/Runoff CTA 09/24/22 10:54 IMPRESSION: 1. Multi-vessel atherosclerotic disease with regions stenosis and occlusion as described in detail above. 2. Mild splenomegaly. 3. Colonic constipation is present. 4. Atrophic right kidney with scarring. Indeterminate cystic lesion at the lateral aspect of the right kidney midpole measures 2.4 cm in the transverse dimension and is stable from the prior study. Soft Tissue Ultrasound 09/25/22 17:00 IMPRESSION: 1. Approximate 3.5 x 5.5 x 11.5 cm hematoma in the right adductor longus muscle. In retrospect, this is unchanged or slightly smaller than on the CTA performed on 09/24/2022. Chest X-Ray 09/25/22 17:18 IMPRESSION: No acute findings. Laboratory Results WBC 6.3 10^3/uL (4.0-10.0) 09/28/22 04:09 RBC 2.95 10^6/uL (4.1-5.3) L 09/28/22 04:09 Hgb 8.7 g/dL (11.7-16.6) L 09/28/22 04:09 Hct 28.9 % (42.0-52.0) L 09/28/22 04:09 MCV 98.0 fl (80-94) H 09/28/22 04:09 MCH 29.5 pg (28.0-34.0) 09/28/22 04:09 MCHC 30.1 g/dL (30.0-36.0) 09/28/22 04:09 RDW 15.3 % (12.1-15.1) H 09/28/22 04:09 Plt Count 157 10^3/cmm (130-400) 09/28/22 04:09 MPV 9.5 fL (7.4-10.4) 09/28/22 04:09 Neut % (Auto) 74.5 % 09/28/22 04:09 Lymph % (Auto) 13.5 % 09/28/22 04:09 [place] % (Auto) 7.8 % 09/28/22 04:09 Eos % (Auto) 3.0 % 09/28/22 04:09 Baso % (Auto) 0.2 % 09/28/22 04:09 Neut # (Auto) 4.70 10^3/uL (1.8-7.7) 09/28/22 04:09 Lymph # (Auto) 0.9 10^3/uL (0.8-4.8) 09/28/22 04:09 [place] # (Auto) 0.5 10^3/uL (0.2-0.9) 09/28/22 04:09 Eos # (Auto) 0.2 10^3/uL (0.0-0.8) 09/28/22 04:09 Baso # (Auto) 0.0 10^3/uL (0.0-0.1) 09/28/22 04:09 Nucleated RBC % (auto) 0 % 09/28/22 04:09 Nucleated RBCs # 0.0 /100WBC 09/28/22 04:09 PT 14.90 SECONDS (12.1-14.9) 09/22/22 08:00 INR 1.14 (0.8-1.2) 09/22/22 08:00 D-Dimer 1.85 ug/mIFEU (0-0.59) H 09/21/22 21:45 Sodium 138 mmol/L (136-145) 09/28/22 04:09 Potassium 4.3 mmol/L (3.5-5.1) 09/28/22 04:09 Chloride 104 mmol/L (98-107) 09/28/22 04:09 Carbon Dioxide 25 mmol/L (22-29) 09/28/22 04:09 Anion Gap 13.3 (5-19) 09/28/22 04:09 BUN 19 mg/dL (8-23) 09/28/22 04:09 Creatinine 1.5 mg/dL (0.7-1.2) H 09/28/22 04:09 GFR Calculation Not Reportable 09/28/22 04:09 Glucose 200 mg/dL (65-115) H 09/28/22 04:09 POC Glucose 265 mg/dL (70-110) H 09/28/22 11:57 Calculated Osmolality 294 mOsm/kg (285-295) 09/28/22 04:09 Calcium 8.6 mg/dL (8.5-10.5) 09/28/22 04:09 Phosphorus 3.2 mg/dL (2.5-4.5) 09/23/22 01:57 Magnesium 2.3 mg/dL (1.7-2.3) 09/23/22 01:57 Total Bilirubin 0.5 mg/dL (0.15-1.2) 09/28/22 04:09 AST 40 U/L (0-40) 09/28/22 04:09 ALT 52 U/L (0-41) H 09/28/22 04:09 Alkaline Phosphatase 103 U/L (40-130) 09/28/22 04:09 Troponin T Gen 5 ng/L 75 ng/L (0-15) H 09/22/22 23:48 Troponin T Baseline 36 ng/L (0-15) H 09/21/22 21:45 Troponin T 120 Minute 74.89 ng/L (0-15) H 09/23/22 01:57 Delta Troponin T -0.11 ABS# (0-10) L 09/23/22 01:57 Troponin T Hi Sens 6Hr 77.45 ng/L (0-15) H 09/23/22 04:58 Troponin T Hi Sens 6Hr Delta 2.45 ng/L (0-12) 09/23/22 04:58 NT-Pro-B Natriuret Pep 1979 pg/mL (0-450) H 09/26/22 06:06 Total Protein 6.0 g/dL (6.6-8.7) L 09/28/22 04:09 Albumin 3.2 g/dL (3.5-5.2) L 09/28/22 04:09 Globulin 2.8 g/dL (1.3-4.6) 09/28/22 04:09 Procalcitonin 0.13 ng/mL (0-0.5) 09/22/22 04:29 TSH 1.59 uIU/mL (0.27-4.20) 09/22/22 04:29 Urine Color Yellow (Yellow) 09/22/22 04:15 Urine Appearance Clear (CLEAR) 09/22/22 04:15 Urine pH 5 (5-7) 09/22/22 04:15 Ur Specific [place] 1.020 (1.005-1.030) 09/22/22 04:15 Urine Protein 3+ (Negative) H 09/22/22 04:15 Urine Glucose (UA) Norm (Normal) 09/22/22 04:15 Urine Ketones Negative (Negative) 09/22/22 04:15 Urine Blood Neg (Negative) 09/22/22 04:15 Urine Nitrate Negative (Negative) 09/22/22 04:15 Urine Bilirubin Neg (Negative) 09/22/22 04:15 Urine Urobilinogen Norm mg/dL (Negative) 09/22/22 04:15 Ur Leukocyte Esterase Negative (Negative) 09/22/22 04:15 Urine RBC 0-4 /hpf (0-2) H 09/22/22 04:15 Urine WBC 0-4 /hpf (0-5) H 09/22/22 04:15 Ur Squamous Epith Cells 0-4 /hpf (0-5) H 09/22/22 04:15 Amorphous Sediment Not Reportable 09/22/22 04:15 Urine Bacteria Trace /hpf (NONE) 09/22/22 04:15 Vitals Last Vital Signs Temp 98.5 F 09/28/22 12:00 Pulse 73 09/28/22 12:00 Resp 15 09/28/22 12:00 BP 143/78 09/28/22 12:00 Pulse Ox 95 09/28/22 12:00 O2 Del Method Room Air 09/28/22 12:00 O2 Flow Rate 2 09/27/22 19:39 Discharge Plan Discharge Patient Disposition: Home Condition: Stable Prescriptions: Continued albuterol sulfate 90 mcg/actuation aero powdr breath act w/sensor 1 inh inhalation Q4H amlodipine 10 mg tablet 10 mg PO DAILY cyclobenzaprine 10 mg tablet 10 mg PO TID PRN (Reason: muscle spasms) isosorbide mononitrate 30 mg tablet extended release 24 hr 30 mg PO DAILY spironolactone 25 mg tablet 50 mg PO DAILY omeprazole 20 mg capsule,delayed release(DR/EC) 20 mg PO DAILY ropinirole 1 mg Tablet 1 mg PO BEDTIME tramadol 50 mg Tablet 50 mg PO Q6H PRN (Reason: pain) Held aspirin 81 mg tablet,delayed release (DR/EC) 81 mg PO DAILY Hold Instructions: Resume on 10/05/22. Discontinued apixaban 2.5 mg tablet 2.5 mg PO BID Discharge Orders: Discharge Order (Routine); Ordered 09/28/22 Ordered By: Alyssa Shay Referrals: Aristides Tomlin MD [Physician] - (Your follow up appt with Dr. Tomlin will be scheduled while you are at the appt with Shannan Golden. If you have any questions Please call ) Fco Moody III, MD [Referring] - 10/18/22 10:30 am Shannan Golden FNP [Nurse Practitioner] - 10/03/22 9:15 am Discharge Diet: Cardiac Discharge Activity: Resume usual activity Patient Instructions: Acute Kidney Injury (DC), Syncope (DC), Syncope (GEN), Fall Prevention (DC), Heart Catheterization (DC), Opioid Safety, Post Angiogram Home Care Instructions Discharge Attestations Time Spent in Discharge Care*: greater than 30 min Quality Metrics Clinical Quality Measures [ No reported AMI, CVA or VTE this stay] Coding Level of Care Code Acute Code for Chg Fwd Diagnoses Syncope R55 AFIA (acute kidney injury) N17.9 Contusion of left ear S00.432A Hx of CABG Z95.1 CAD (coronary artery disease) I25.10 Hyperkalemia E87.5 Hypertension I10 Diabetes E11.9 Abnormal stress test R94.39
== END 2022-09-28 14:35 | disposition home or self-care (01) | DRG 287 ==
LOC: ER 09-22 00:31 → CSU 09-22 00:46
PROVIDERS: Internal Medicine; Admitting Provider Internal Medicine; Emergency Provider Emergency Medicine; PCP Electrodiagnostic Medicine; Visit Provider Student in an Organized Health Care Education/Training Program
PROC: 4A023N7 Measurement of Cardiac Sampling and Pressure, Left Heart, Percutaneous Approach (ICD-10-PCS; principal; 2022-09-27 10:00)
DX: I95.1 Orthostatic hypotension (principal); N17.9 Acute kidney failure, unspecified; I25.119 Atherosclerotic heart disease of native coronary artery with unspecified angina pectoris; Z95.1 Presence of aortocoronary bypass graft; Z86.711 Personal history of pulmonary embolism; I48.91 Unspecified atrial fibrillation; R41.0 Disorientation, unspecified; S70.11XA Contusion of right thigh, initial encounter; W19.XXXA Unspecified fall, initial encounter; J44.9 Chronic obstructive pulmonary disease, unspecified; E11.22 Type 2 diabetes mellitus with diabetic chronic kidney disease; I12.9 Hypertensive chronic kidney disease with stage 1 through stage 4 chronic kidney disease, or unspecified chronic kidney disease; E11.51 Type 2 diabetes mellitus with diabetic peripheral angiopathy without gangrene; N18.9 Chronic kidney disease, unspecified; E87.5 Hyperkalemia; Z96.653 Presence of artificial knee joint, bilateral; R77.8 Other specified abnormalities of plasma proteins
CPT/HCPCS: 36415; 36416; 51702; 70450; 71045; 72125; 73502; 75635; 76770; 76882; 78452; 80048; 80053; 81001; 82962; 83735; 83880; 84100; 84145; 84443; 84484; 85025; 85378; 85610; 87040; 93005; 93017; 93459; 93880; 93922; 93925; 94640; 96360; 96372; 96374; 96376; 97116; 97161; 97530; 99152; 99153; 99285; A9500; C1769; C1887; C1894; C8929; J1644; J1650; J1815; J2250; J2270; J2785; J3010; J7030; Q9967

== ENCOUNTER → 2022-10-03 09:21 | Outpatient (BNVA) | payer MEDICARE, SELFPAY | PROVIDERS: PCP Electrodiagnostic Medicine; Visit Provider Nurse Practitioner Family | DX: I25.10 Atherosclerotic heart disease of native coronary artery without angina pectoris (principal); I48.91 Unspecified atrial fibrillation; I10 Essential (primary) hypertension; R55 Syncope and collapse; Z79.82 Long term (current) use of aspirin | CPT/HCPCS: 99214 ==

== ENCOUNTER → 2022-11-20 10:39 | Outpatient (BNVA) | payer MEDICARE, SELFPAY | PROVIDERS: PCP Electrodiagnostic Medicine; Visit Provider Internal Medicine Cardiovascular Disease | DX: I48.91 Unspecified atrial fibrillation (principal); Z95.1 Presence of aortocoronary bypass graft; I25.10 Atherosclerotic heart disease of native coronary artery without angina pectoris; E11.9 Type 2 diabetes mellitus without complications; I10 Essential (primary) hypertension; R55 Syncope and collapse; Z79.82 Long term (current) use of aspirin; Z79.4 Long term (current) use of insulin | CPT/HCPCS: 99214 ==

== ENCOUNTER 2023-03-24 11:15 | Emergency (ER) | payer OTHER, SELFPAY ==
[2023-03-24 11:42] VITALS: BP 162/145; PULSE 78; RESP 18; TEMP 36.8; O2SAT 95; BMI 34.9
--- NOTE | 2023-03-24 11:54 | CTR_ITS ---
PROCEDURE INFORMATION: Exam: CT Head Without Contrast Exam date and time: 03/24/2023 12:12 PM Age: 82 years old Clinical indication: Altered mental status/memory loss; Additional info: Confusion TECHNIQUE: Imaging protocol: Computed tomography of the head without contrast. Radiation optimization: All CT scans at this facility use at least one of these dose optimization techniques: automated exposure control; mA and/or kV adjustment per patient size (includes targeted exams where dose is matched to clinical indication); or iterative reconstruction. REPORTING DATA: Count of CT and Cardiac NM exams in prior 12 months: This patient has received 4 known CTs and 0 known cardiac nuclear medicine studies in the 12 months prior to the current study. 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 There is no evidence of acute parenchymal hemorrhage, extra-axial collection, or acute infarction. There is no mass effect, midline shift, or downward herniation. Cerebral ventricles: No ventriculomegaly. Paranasal sinuses: Visualized sinuses are unremarkable. No fluid levels. Mastoid air cells: Visualized mastoid air cells are well aerated. Bones/joints: Unremarkable. No acute fracture. Soft tissues: Unremarkable. CT/CT head wo con* [id number] IMPRESSION: Multiple chronic infarcts. No evidence of acute intracranial process.
--- NOTE | 2023-03-24 11:54 | CTR_ITS ---
PROCEDURE INFORMATION: Exam: CT Lumbar Spine Without Contrast Exam date and time: 03/24/2023 12:09 PM Age: 82 years old Clinical indication: Injury or trauma; Fall; Blunt trauma (contusions or hematomas); Additional info: Pain post fall TECHNIQUE: Imaging protocol: Computed tomography of the lumbar spine without contrast. Total images: 144 Radiation optimization: All CT scans at this facility use at least one of these dose optimization techniques: automated exposure control; mA and/or kV adjustment per patient size (includes targeted exams where dose is matched to clinical indication); or iterative reconstruction. REPORTING DATA: Count of CT and Cardiac NM exams in prior 12 months: This patient has received 4 known CTs and 0 known cardiac nuclear medicine studies in the 12 months prior to the current study. COMPARISON: CT angio abd aorta runof [id number] 09/24/2022 12:17 PM RADIATION DOSE METRICS: Total DLP (mGy-cm): 1235.28 FINDINGS: Bones/joints: Bridging osteophytes are seen spanning the SI joints bilaterally. Diffuse idiopathic skeletal hyperostosis is seen with large flowing anterior osteophytes with relative preservation of disc space heights. Disc degeneration is most notable at L4/L5. L4-S1 Facet joint degenerative changes are present. Gallbladder and bile ducts: Prior cholecystectomy noted. Vasculature: Moderate atherosclerotic disease is evident. Soft tissues: Unremarkable. CT/CT lumbar spine wo con* [id number] IMPRESSION: No acute spinal pathology.
[2023-03-24 12:14] VITALS: PULSE 80; RESP 20; O2SAT 98
[2023-03-24 13:00] VITALS: PULSE 87; RESP 18; O2SAT 96
[2023-03-24 13:03] LABS: Alanine Aminotransferase 16 U/L (0-41); Albumin Level 3.6 g/dL (3.5-5.2); Alkaline Phosphatase 106 U/L (40-130); Anion Gap 16.6 (5-19); Aspartate Amino Transferase 19 U/L (0-40); Blood Urea Nitrogen 35 mg/dL (8-23); Calcium 8.7 mg/dL (8.5-10.5); Carbon Dioxide 22 mmol/L (22-29); Chloride 103 mmol/L (98-107); Globulin 3.1 g/dL (1.3-4.6); Glucose 175 mg/dL (65-115); Magnesium 2.2 mg/dL (1.7-2.3); Osmolality Calculated 296 mOsm/kg (285-295); Potassium 4.6 mmol/L (3.5-5.1); Sodium 137 mmol/L (136-145); Total Bilirubin 0.3 mg/dL (0.15-1.2); Total Protein 6.7 g/dL (6.6-8.7)
[2023-03-24 13:07] LABS: Basophils % 0.5 %; Eosinophils # 0.2 10^3/uL (0.0-0.8); Eosinophils % 2.3 %; Hematocrit 38.9 % (37-53); Lymphocytes # 1.2 10^3/uL (0.8-4.8); Lymphocytes % 17.7 %; Mean Corpuscular HGB Conc 32.4 g/dL (30-55); Mean Corpuscular Hemoglobin 29.9 pg (27-33); Mean Corpuscular Volume 92.4 fl (82-101); Mean Platelet Volume 9.4 fL (7.4-10.4); Monocytes # 0.5 10^3/uL (0.2-0.9); Monocytes % 7.7 %; Neutrophils % 71.2 %; Nucleated Red Blood Cells % 0 %; Platelet Count 167 10^3/cmm (157-399); Red Blood Count 4.21 10^6/uL (3.85-5.65); Red Cell Distribution Width 15.3 % (12.1-15.1)
--- NOTE | 2023-03-24 13:21 | W.ED.BACK ---
HPI - Back Pain/Injury General: Chief Complaint: Back Pain/Injury Stated Complaint: fall, back pain, altered mental Time Seen by Provider: 03/24/23 11:44 History of Present Illness: 82-year-old male presents emergency room with his and daughter due to change in mentation since Sunday after taking Flexeril. According to patient had a fall on Sunday ball landing on his buttock. denies any head injury or loss of consciousness after the fall but was complaining of lower back pain. Patient was given Flexeril 10 mg on Sunday and the noticed confusion since then. Patient upon present emergency room was awake alert without any acute distress. Patient was able to follow commands and denies any chest pain, shortness of breath, headache, neck pain, abdominal pain. Complain of diffuse lower back pain described as cramping/spasm sensation. Denies any dysuria, hematuria or urine frequency. No bladder or bowel dysfunction. Associated symptoms: Deny abdominal pain, chills, dysuria, fever(s), nausea, urinary urgency or vomiting Review of Systems General: Reports: 10 or more systems reviewed and unremarkable except in HPI and below Const: Denies: fever(s), chills, body aches or change in appetite Resp: Denies: dyspnea, productive cough, non-productive cough, wheezing, stridor, pain on inspiration or change in phlegm color GI: Denies: abdominal pain, nausea, vomiting or hematemesis : Denies: flank pain, difficulty urinating, dysuria, urinary frequency, urinary urgency, oliguria, urinary incontinence, testicular pain, testicular mass, scrotal swelling, difficulty with ejactulations, painful ejaculations, hematospermia or erectile dysfunction Musc: Reports: back pain, muscle cramps and muscle weakness Neuro: Reports: confusion; Denies: numbness in extremities, sensory changes, dizziness, vertigo, Slurred speech present, difficulty communicating thoughts, seizure-like activity, involuntary movements or restless legs Psych: Denies: anxiety, depression, mood swings, sleeping less, sleeping more, hopelessness, loss of interest, change in appetite, irritability, paranoia or memory loss PFS ED PFSH: Medical History A-fib CAD (coronary artery disease) Diabetes Hypertension Surgical History Hx of CABG Social History Smoking and tobacco/nicotine status: never used tobacco/nicotine Physical Exam Const: COMMON NORMALS: no acute distress, average body habitus, patient oriented x3, no limitations, healthy appearing, alert and well nourished HENMT: COMMON NORMALS: normocephalic, atraumatic, hearing grossly normal bilaterally, external ears normal, EAC's normal, TM's normal bilaterally, Normal external nose present, Normal nasal mucous membranes and turbinates present, moist oral mucous membranes, oropharynx normal, dentition normal and gingiva normal HEAD & SCALP: normocephalic and atraumatic NOSE: Normal external nose present and Normal nasal mucous membranes and turbinates present EXTERNAL EAR: Yes external ears normal EXTERNAL AUDITORY CANAL: EAC's normal TYMPANIC MEMBRANE: TM's normal bilaterally Neck/C-Spine: COMMON NORMALS: full ROM, no lymphadenopathy, supple, no meningeal signs, no JVD, Thyroid normal and No carotid bruits THYROID: Thyroid normal Chest: COMMONS NORMALS: normal inspection of the chest, normal palpation of entire chest wall, normal inspection of the breasts and normal palpation of the breasts Breast/axilla inspection: Yes normal inspection of the breasts BREAST/AXILLA PALPATION: Yes normal palpation of the breasts Resp: COMMON NORMALS: normal respiratory effort, No retractions, No use of accessory muscles, clear to auscultation bilaterally and percussion normal AUSCULTATION: clear to auscultation bilaterally PERCUSSION: percussion normal Cardio: COMMON NORMALS: no JVD GI: COMMON NORMALS: Normal to inspection, nondistended, normoactive bowel sounds present, Soft to palpation, non-tender, No hepatosplenomegaly present, no masses and no bruits PALPATION: Yes Soft to palpation and Yes No hepatosplenomegaly present Back/Pelvis: GENERAL BACK: Yes tenderness Extremity: COMMON NORMALS: normal to inspection, full ROM, capillary refill normal, no joint enlargement, no clubbing, cyanosis or edema, no calf tenderness and no pedal edema Neuro: COMMON NORMALS: patient oriented x3 SENSORIUM/ORIENTATION: Yes alert MENINGEAL SIGNS: Yes no meningeal signs CRANIAL NERVES: Yes CN normal except as noted SPEECH: speech normal Course Vital Signs: Vital signs: Vital Signs Temperature 98.3 F 03/24/23 11:42 Pulse Rate 68 03/24/23 14:55 Respiratory Rate 16 03/24/23 14:55 Blood Pressure 162/145 03/24/23 11:42 Pulse Oximetry 98 03/24/23 14:55 Oxygen Delivery Me thod Room Air 03/24/23 11:42 MDM - Back Pain/Injury Medical Decision Making Patient was made comfortable emergency room had extensive work-up with CBC, CMP, UA, CT head and lumbar. Discussed the lab findings and CT findings with the . Patient was given IV fluid due to elevated creatinine. Follow-up PCP recommended for further evaluation and treatment. Differential Diagnosis Likely lumbar radiculopathy, strain of lumbar region, renal colic, pyelonephritis, thoracic back pain, AAA and discitis Labs 03/24/23 12:25 03/24/23 12:[address] 03/24/23 11:54 IMPRESSION: Multiple chronic infarcts. No evidence of acute intracranial process. Lumbar Spine CT 03/24/23 11:54 IMPRESSION: No acute spinal pathology. Laboratory Results WBC 6.60 10^3/uL (3.29-11.43) 03/24/23 12:25 RBC 4.21 10^6/uL (3.85-5.65) 03/24/23 12:25 Hgb 12.60 g/dL (11.27-16.99) 03/24/23 12:25 Hct 38.9 % (37-53) 03/24/23 12:25 MCV 92.4 fl (82-101) 03/24/23 12:25 MCH 29.9 pg (27-33) 03/24/23 12:25 MCHC 32.4 g/dL (30-55) 03/24/23 12:25 RDW 15.3 % (12.1-15.1) H 03/24/23 12:25 Plt Count 167 10^3/cmm (157-399) 03/24/23 12:25 MPV 9.4 fL (7.4-10.4) 03/24/23 12:25 Neut % (Auto) 71.2 % 03/24/23 12:25 Lymph % (Auto) 17.7 % 03/24/23 12:25 [place] % (Auto) 7.7 % 03/24/23 12:25 Eos % (Auto) 2.3 % 03/24/23 12:25 Baso % (Auto) 0.5 % 03/24/23 12:25 Neut # (Auto) 4.70 10^3/uL (1.8-7.7) 03/24/23 12:25 Lymph # (Auto) 1.2 10^3/uL (0.8-4.8) 03/24/23 12:25 [place] # (Auto) 0.5 10^3/uL (0.2-0.9) 03/24/23 12:25 Eos # (Auto) 0.2 10^3/uL (0.0-0.8) 03/24/23 12:25 Baso # (Auto) 0.0 10^3/uL (0.0-0.1) 03/24/23 12:25 Nucleated RBC % (auto) 0 % 03/24/23 12:25 Nucleated RBCs # 0.0 /100WBC 03/24/23 12:25 Sodium 137 mmol/L (136-145) 03/24/23 12:25 Potassium 4.6 mmol/L (3.5-5.1) 03/24/23 12:25 Chloride 103 mmol/L (98-107) 03/24/23 12:25 Carbon Dioxide 22 mmol/L (22-29) 03/24/23 12:25 Anion Gap 16.6 (5-19) 03/24/23 12:25 BUN 35 mg/dL (8-23) H 03/24/23 12:25 Creatinine 2.2 mg/dL (0.7-1.2) H 03/24/23 12:25 GFR Calculation Not Reportable 03/24/23 12:25 Glucose 175 mg/dL (65-115) H 03/24/23 12:25 Calculated Osmolality 296 mOsm/kg (285-295) H 03/24/23 12:25 Calcium 8.7 mg/dL (8.5-10.5) 03/24/23 12:25 Magnesium 2.2 mg/dL (1.7-2.3) 03/24/23 12:25 Total Bilirubin 0.3 mg/dL (0.15-1.2) 03/24/23 12:25 AST 19 U/L (0-40) 03/24/23 12:25 ALT 16 U/L (0-41) 03/24/23 12:25 Alkaline Phosphatase 106 U/L (40-130) 03/24/23 12:25 Total Protein 6.7 g/dL (6.6-8.7) 03/24/23 12:25 Albumin 3.6 g/dL (3.5-5.2) 03/24/23 12:25 Globulin 3.1 g/dL (1.3-4.6) 03/24/23 12:25 Urine Color Yellow (Yellow) 03/24/23 12:48 Urine Appearance Clear (CLEAR) 03/24/23 12:48 Urine pH 6.5 (5-7) 03/24/23 12:48 Ur Specific [place] 1.010 (1.005-1.030) 03/24/23 12:48 Urine Protein 3+ (Negative) H 03/24/23 12:48 Urine Glucose (UA) Norm (Normal) 03/24/23 12:48 Urine Ketones Negative (Negative) 03/24/23 12:48 Urine Blood Neg (Negative) 03/24/23 12:48 Urine Nitrate Negative (Negative) 03/24/23 12:48 Urine Bilirubin Neg (Negative) 03/24/23 12:48 Urine Urobilinogen Norm mg/dL (Negative) 03/24/23 12:48 Ur Leukocyte Esterase Negative (Negative) 03/24/23 12:48 Urine RBC None /hpf (0-2) 03/24/23 12:48 Urine WBC 0-4 /hpf (0-5) H 03/24/23 12:48 Ur Squamous Epith Cells None /hpf (0-5) 03/24/23 12:48 Amorphous Sediment Not Reportable 03/24/23 12:48 Urine Bacteria Trace /hpf (NONE) 03/24/23 12:48 XR interpretation done by ED provider, pending radiology final review Discharge Plan Discharge Patient Disposition: Home Clinical Impression: AFIA (acute kidney injury), Acute dehydration, Hypertension Condition: Stable Prescriptions: No Action albuterol sulfate 90 mcg/actuation aero powdr breath act w/sensor 1 inh inhalation Q4H amlodipine 10 mg tablet 10 mg PO DAILY aspirin 81 mg tablet,delayed release (DR/EC) 81 mg PO DAILY Hold Instructions: Resume on 10/05/22. cyclobenzaprine 10 mg tablet 10 mg PO TID PRN (Reason: muscle spasms) isosorbide mononitrate 30 mg tablet extended release 24 hr 30 mg PO DAILY spironolactone 25 mg tablet 50 mg PO DAILY omeprazole 20 mg capsule,delayed release(DR/EC) 20 mg PO DAILY insulin glargine [Lantus Solostar U-100 Insulin] 100 unit/mL (3 mL) insulin pen 30 unit SUBCUT DAILY Rx Instructions: Bedtime insulin aspart U-100 [Novolog FlexPen U-100 Insulin] 100 unit/mL (3 mL) insulin pen 20 unit SUBCUT TID ropinirole 1 mg Tablet 1 mg PO BEDTIME tramadol 50 mg Tablet 50 mg PO Q6H PRN (Reason: pain) Discharge Orders: Discharge ED (Routine); Ordered 03/24/23 Ordered By: Cristo Dickens Referrals: Greg Medeiros DO [Primary Care Provider] - Discharge Diet: Advance as tolerated Discharge Activity: Resume usual activity Patient Instructions: Opioid Safety, Pain Management Coding Level of Care Code ED Flight Dispatcher for Cristopher Isaac
[2023-03-24 13:22] LABS: Urine Appearance Clear (CLEAR); Urine Color Yellow (Yellow); pH Urine 6.5 (5-7)
[2023-03-24 13:23] LABS: Add Urine Culture? No; Add Urine Microscopic? YES; Bacteria Urine TRACE /hpf; Bilirubin Urine Neg (Negative); Blood Urine Neg (Negative); Glucose Urine UA Norm (Normal); Ketones Urine Negative (Negative); Leukocyte Esterase Urine Negative (Negative); Nitrate Urine Negative (Negative); Protein Urine 3+ (Negative); Urobilinogen Urine Norm (Negative); WBC Urine 0-4 /hpf (0-5)
[2023-03-24] MEDS: sodium chloride 0.9% 1,000 ML 999 ML IV (13:33)
[2023-03-24 14:00] VITALS: RESP 16; O2SAT 98
[2023-03-24 14:55] VITALS: PULSE 68; RESP 16; O2SAT 98
== END 2023-03-24 14:57 | disposition home or self-care (01) ==
PROVIDERS: Emergency Provider Family Medicine; PCP Electrodiagnostic Medicine
DX: N17.9 Acute kidney failure, unspecified (principal); E86.0 Dehydration; I10 Essential (primary) hypertension; Z79.82 Long term (current) use of aspirin; Z79.4 Long term (current) use of insulin; I25.10 Atherosclerotic heart disease of native coronary artery without angina pectoris; E11.9 Type 2 diabetes mellitus without complications; Z95.1 Presence of aortocoronary bypass graft
CPT/HCPCS: 36415; 70450; 72131; 80053; 81001; 83735; 85025; 99284; J7030

== ENCOUNTER 2023-03-27 18:02 | Emergency (ER) | payer OTHER, SELFPAY ==
--- NOTE | 2023-03-27 18:02 | ECG_ITS ---
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 Measurements Intervals [place] Rate: 65 P: 0 WA: 0 QRS: 64 QRSD: 106 T: 61 QT: 403 QTc: 421 Interpretive Statements ATRIAL FIBRILLATION INCOMPLETE RIGHT BUNDLE BRANCH BLOCK [90+ ms QRS DURATION, TERMINAL R IN V1/V2, 40+ ms S IN I/aVL/V4/V5/V6] ABNORMAL RHYTHM ECG Compared to ECG 09/23/2022 06:12:45 No significant changes Electronically Signed On 03-27-2023 21:57:29 CDT by Charity Spence M.D. [email or web address]
--- NOTE | 2023-03-27 18:02 | CTR_ITS ---
PROCEDURE INFORMATION: Exam: CT Head Without Contrast Exam date and time: 03/27/2023 6:04 PM Age: 82 years old Clinical indication: Stroke-like symptoms; Altered mental status/memory loss; Additional info: Symptoms of acute stroke TECHNIQUE: Imaging protocol: Computed tomography of the head without contrast. Radiation optimization: All CT scans at this facility use at least one of these dose optimization techniques: automated exposure control; mA and/or kV adjustment per patient size (includes targeted exams where dose is matched to clinical indication); or iterative reconstruction. Other technique: STROKE PROTOCOL was implemented. REPORTING DATA: Count of CT and Cardiac NM exams in prior 12 months: This patient has received 6 known CTs and 0 known cardiac nuclear medicine studies in the 12 months prior to the current study. COMPARISON: CT head wo con* [id number] 03/24/2023 12:12 PM RADIATION DOSE METRICS: Total DLP (mGy-cm): 1110 FINDINGS: Brain: Left subdural hemorrhage along the temporal, posterior frontal, and parietal lobes. This measures up to 8 mm in maximum thickness. Mild left sulcal effacement. 2 mm smzpu-[id number]-[id number] subfalcine shift. Scattered subarachnoid blood along the left frontal, temporal, and parietal lobes. Small hemorrhagic contusion in the anterior left frontal lobe measuring 0.8 cm. Small hemorrhagic contusion in the left temporal lobe measuring 1.2 cm. Severe hypodensities in supratentorial periventricular and subcortical white matter, consistent with microangiopathy. Old encephalomalacia in the right frontal lobe, anterior right parietal lobe, and posterior left parietal lobe. Cerebral ventricles: No ventriculomegaly. Paranasal sinuses: Visualized sinuses are unremarkable. No fluid levels. Mastoid air cells: Visualized mastoid air cells are well aerated. Auditory system: Small amount of fluid or blood in the left middle ear cavity. Orbital cavities: Bilateral cataract surgery. Bones/joints: Oblique skull fracture involving the superior occipital bone, left parietal bone, and superolateral left mastoid bone. No visible involvement of the left otic capsule. Soft tissues: Left parietal scalp contusion. Other findings: Small focus of left pneumo cephaly (series 4, image 27). CT/CT head thrombolytic [id number] IMPRESSION: 1. Left hemispheric acute subdural hemorrhage measuring up to 8 mm in thickness. This creates mild mass effect with mild left sulcal effacement and 2 mm heat-et-ilfqu subfalcine shift. 2. Scattered acute subarachnoid hemorrhage in the left frontal, temporal, and parietal lobes. 3. Small hemorrhagic contusions in the left frontal and temporal lobes. 4. Skull fracture involving the superior occipital bone, left parietal bone, and superior left mastoid bone. No evidence for involvement of the otic capsule. 5. Small amount of pneumocephalus, consistent with fracture through the superior left mastoid bone. ASSESSMENT: ASPECTS ([facility] Stroke Program Early CT Score) is 10.
[2023-03-27 18:15] VITALS: BP 198/91; PULSE 65; RESP 16; O2SAT 95
[2023-03-27 18:30] VITALS: BP 134/73; PULSE 65; O2SAT 96
--- NOTE | 2023-03-27 18:30 | PM.CONSULT ---
Providers/Reason For Consult Consulting Physician/Specialty*: Tito Cordero MD neurology and epilepsy Reason for Consult*: Critical care: Code stroke emergency room 11 Primary Care Provider: Greg Medeiros DO History of Present Illness History of Present Illness Andrez Olvera is a 82 year old male with a history of atrial fibrillation treated with Eliquis, coronary artery bypass graft, prostate cancer, type 2 diabetes mellitus, hearing loss, bilateral cataracts status post cataract surgery, right eyelid cancer, and history of back surgery. According to the family, the patient's last known well was 5 PM on 03/27/2023. The patient was reported to go outside on his porch to play with his dog. The family stated that when they did not hear any activity coming from the patient, the stated she went outside to check on the patient and he was down on his back and not able to speak and was having difficulty opening his eyes or following commands. As a result the family contacted emergency services and the patient was brought via ambulance to [facility] emergency room for evaluation. Stat glucose performed by EMS was reported to be 156. Stat noncontrast head CT was obtained and revealed the following: IMPRESSION: 1. Left hemispheric acute subdural hemorrhage measuring up to 8 mm in thickness.? This creates mild mass effect with mild left sulcal effacement and 2 mm eknu-wv-kgwad subfalcine shift. 2. Scattered acute subarachnoid hemorrhage in the left frontal, temporal, and parietal lobes. 3. Small hemorrhagic contusions in the left frontal and temporal lobes. 4. Skull fracture involving the superior occipital bone, left parietal bone, and superior left mastoid bone.? No evidence for involvement of the otic capsule. 5. Small amount of pneumocephalus, consistent with fracture through the superior left mastoid bone. Due to the Intracranial hemorrhage, and the patient being on Eliquis, the patient was not a candidate for thrombolytics and no thrombolytics were administered. The patient will be transferred to another facility for neurosurgical care. According to the patient's family, the patient experienced a fall on September 2022 in the bathtub. He was brought to the hospital at that time. None contrast head CT revealed multiple remote strokes but no hemorrhage. Past medical history: Atrial fibrillation treated with Eliquis Coronary atherosclerotic heart disease status post coronary artery bypass Type 2 diabetes mellitus Hearing loss Prostate cancer Right eye cancer surgery Bilateral total knee arthroplasty Drug allergies: Statins which resulted in a rash and muscle aches and pains and cramps Current Home medications: Eliquis Aspirin 81 mg p.o. daily Norvasc 10 mg p.o. daily Flexeril 10 mg p.o. 3 times daily Insulin 100 units/mL 20 units subcutaneously 3 times daily Albuterol inhaler 90 mcg per accusation 1 inhalation every 4 hours Isosorbide mononitrate extended release 30 mg p.o. daily Omeprazole 20 mg p.o. daily Spironolactone 25 mg tablets 2 p.o. daily Ropinirole 1 mg p.o. nightly Tramadol 50 mg p.o. every 6 hours as needed Habits: None Family history: Negative for strokes Review of Systems General: Reports: ROS unobtainable due to medical condition Medications/Allergies Home Medications Medication Instructions Recorded Confirmed Last Taken Type albuterol sulfate 90 mcg/actuation 1 inh inhalation Q4H 08/30/20 11/20/22 Unknown History breath activated powder inhaler,sensor amlodipine 10 mg tablet 10 mg PO DAILY 08/30/20 11/20/22 09/21/22 08:00 History aspirin 81 mg tablet,delayed 81 mg PO DAILY 08/30/20 11/20/22 09/21/22 08:00 History release cyclobenzaprine 10 mg tablet 10 mg PO TID PRN muscle spasms 08/30/20 11/20/22 Unknown History isosorbide mononitrate 30 mg 30 mg PO DAILY 08/30/20 11/20/22 09/21/22 08:00 History tablet,extended release 24 hr omeprazole 20 mg capsule,delayed 20 mg PO DAILY 08/30/20 11/20/22 09/21/22 08:00 History release spironolactone 25 mg tablet 50 mg PO DAILY 08/30/20 11/20/22 09/21/22 08:00 History ropinirole 1 mg tablet 1 mg PO BEDTIME 09/22/22 11/20/22 09/21/22 20:00 History tramadol 50 mg tablet 50 mg PO Q6H PRN pain 09/22/22 11/20/22 Unknown History insulin aspart U-100 100 unit/mL 20 unit SUBCUT TID 11/20/22 11/20/22 Unknown History (3 mL) subcutaneous pen (Novolog FlexPen U-100 Insulin aspart) insulin glargine 100 unit/mL (3 30 unit SUBCUT DAILY 11/20/22 11/20/22 Unknown History mL) subcutaneous pen (Lantus Solostar U-100 Insulin) Allergies Allergy/AdvReac Type Severity Reaction Status Date / Time lovastatin Allergy rash Verified 03/24/23 11:45 PFSH Acute PFSH: Medical History A-fib CAD (coronary artery disease) Diabetes Hypertension Surgical History Hx of CABG Social History Smoking and tobacco/nicotine status: never used tobacco/nicotine Vitals/I&O/Wt Last Vital Signs Pulse 65 03/27/23 18:15 Resp 16 03/27/23 18:15 BP 198/91 03/27/23 18:15 Pulse Ox 95 03/27/23 18:15 O2 Del Method Room Air 03/27/23 18:15 Weight last 48 hrs Weight 206 lb Physical Exam Narrative: NIH score = 6 The patient is alert and oriented to person but not to place or situation. Patient had a bruise on the back of his head and small abrasion on the mid forehead. Pupils 3 mm reactive to light and accommodation. Extraocular movements intact. Cranial nerves II through XII intact except patient hard of hearing. Motor testing grossly nonfocal. Deep tendon reflex revealed plantar responses flexor bilaterally. Sensory examination was intact to gross modalities. Due to patient's confusion and difficulty hearing, double sensory stimulation testing was not reliable. Patient was unable to answer questions. Patient was also unable to follow commands. Speech was mildly dysarthric. Patient did recognize his . Patient's was at the bedside. Throat clear. Lungs clear. Heart regular rhythm and rate. Extremities were negative for clubbing cyanosis or edema. Data 03/27/23 17:37 03/27/23 17:37 A&P Assessment and plan (1) Subdural hemorrhage: Impression: 1. Intracranial hemorrhage 2. Altered mental status secondary to #1 3. Atrial fibrillation treated with Eliquis and low-dose aspirin 4. Heart disease status post coronary artery bypass graft 5. Type 2 diabetes mellitus 6. Bilateral cataract surgery 7. Chronic hearing loss Plan: 1. Agree with transfer to a facility that has neurosurgical capability 2. Speak with cardiology regarding patient's history of atrial fibrillation requiring anticoagulation regarding treatment recommendations for atrial fibrillation 3. Consider Watchman procedure for atrial fibrillation (2) Subarachnoid hemorrhage: Consult Attestations Medical Necessity Statement: Patient evaluated by neurology for critical care code stroke emergency room bed 11 and intracranial hemorrhage Coding Level of Care Code 26219 Diagnoses Subdural hemorrhage I62.00 Subarachnoid hemorrhage I60.9
[2023-03-27 18:34] LABS: Basophils % 0.5 %; Eosinophils # 0.2 10^3/uL (0.0-0.8); Eosinophils % 3.3 %; Hematocrit 41.8 % (37-53); Lymphocytes # 1.6 10^3/uL (0.8-4.8); Lymphocytes % 27.1 %; Mean Corpuscular HGB Conc 32.3 g/dL (30-55); Mean Corpuscular Hemoglobin 29.7 pg (27-33); Mean Corpuscular Volume 91.9 fl (82-101); Mean Platelet Volume 10.4 fL (7.4-10.4); Monocytes # 0.4 10^3/uL (0.2-0.9); Monocytes % 7.6 %; Neutrophils # 3.54 10^3/uL (1.8-7.7); Nucleated Red Blood Cells % 0 %; Platelet Count 175 10^3/cmm (157-399); Red Blood Count 4.55 10^6/uL (3.85-5.65); Red Cell Distribution Width 15.1 % (12.1-15.1)
[2023-03-27 18:45] VITALS: BP 198/89; PULSE 67; RESP 20; O2SAT 94
--- NOTE | 2023-03-27 18:45 | ED_ITS ---
HPI - Neuro Symptoms/Deficit General: Chief Complaint: Neuro Symptoms/Deficit Stated Complaint: Stroke Alert Time Seen by Provider: 03/27/23 18:02 Source: EMS Mode of arrival: EMS Limitations: altered mental status History of Present Illness: 82-year-old male who family states that last seen normal 5 PM and found him outside and fell and hit his head neck states he was confused not following commands and patient initially right wrist. He is talking will follow some commands but is quite confused. He does have history A-fib he is on Eliquis. Review of Systems General: Reports: ROS unobtainable due to mental status PFS ED PFSH: Medical History A-fib CAD (coronary artery disease) Diabetes Hypertension Surgical History Hx of CABG Social History Smoking and tobacco/nicotine status: never used tobacco/nicotine Physical Exam Const: COMMON NORMALS: no acute distress and healthy appearing; negative for patient oriented x3 HENMT: COMMON NORMALS: normocephalic HEAD & SCALP: normocephalic Eye: COMMON NORMALS: Equal, round and reactive pupils present and EOMs intact bilaterally PUPIL: Yes Equal, round and reactive pupils present Neck/C-Spine: COMMON NORMALS: full ROM and supple Chest: COMMONS NORMALS: normal inspection of the chest and normal palpation of entire chest wall Resp: COMMON NORMALS: normal respiratory effort, No retractions, No use of accessory muscles and clear to auscultation bilaterally AUSCULTATION: clear to auscultation bilaterally Cardio: COMMON NORMALS: regular rate, regular rhythm and No murmurs present (Cardio) RATE: regular rate RHYTHM: regular rhythm GI: COMMON NORMALS: Normal to inspection, nondistended, normoactive bowel sounds present, Soft to palpation, non-tender and no masses PALPATION: Yes Soft to palpation Extremity: COMMON NORMALS: normal to inspection and full ROM Neuro: COMMON NORMALS: moves all extremities and no focal motor deficits; negative for patient oriented x3 Psych: COMMON NORMALS: cooperative; negative for mental status grossly normal Skin: COMMON NORMALS: no rashes or lesions noted and no wounds GENERAL SKIN EXAM: no rashes or lesions noted Course Vital Signs: Vital signs: Vital Signs Pulse Rate 65 03/27/23 18:30 Respiratory Rate 16 03/27/23 18:15 Blood Pressure 134/73 03/27/23 18:30 Pulse Oximetry 96 03/27/23 18:30 Oxygen Delivery Me thod Room Air 03/27/23 18:15 MDM - Neuro Symptoms/Deficit Medical Decision Making Patient presents here with a skull fracture along with subdural and subarachnoid hemorrhage likely from a fall he does have confusion here he is protecting his own airway does not need to be in a bed at this time he is on Eliquis we will give Andexxa I have spoke to [facility] will transfer there for higher level of care per trauma and neurosurgery Medical Records I reviewed the patient's medical records. Lab Data I reviewed the patient's lab results. 03/27/23 17:37 03/27/23 17:[address] 03/27/23 18:02 IMPRESSION: 1. Left hemispheric acute subdural hemorrhage measuring up to 8 mm in thickness. This creates mild mass effect with mild left sulcal effacement and 2 mm [id number] subfalcine shift. 2. Scattered acute subarachnoid hemorrhage in the left frontal, temporal, and parietal lobes. 3. Small hemorrhagic contusions in the left frontal and temporal lobes. 4. Skull fracture involving the superior occipital bone, left parietal bone, and superior left mastoid bone. No evidence for involvement of the otic capsule. 5. Small amount of pneumocephalus, consistent with fracture through the superior left mastoid bone. ASSESSMENT: ASPECTS ([place] Stroke Program Early CT Score) is 10. ADDENDUM: 03/27/23 6095 THIS REPORT CONTAINS FINDINGS THAT MAY BE CRITICAL TO PATIENT CARE. Dr Rodrigues has seen report, with no questions at 6:38 PM CDT on 03/27/2023. Laboratory Results WBC 5.80 10^3/uL (3.29-11.43) 03/27/23 17:37 RBC 4.55 10^6/uL (3.85-5.65) 03/27/23 17:37 Hgb 13.50 g/dL (11.27-16.99) 03/27/23 17:37 Hct 41.8 % (37-53) 03/27/23 17:37 MCV 91.9 fl (82-101) 03/27/23 17:37 MCH 29.7 pg (27-33) 03/27/23 17:37 MCHC 32.3 g/dL (30-55) 03/27/23 17:37 RDW 15.1 % (12.1-15.1) 03/27/23 17:37 Plt Count 175 10^3/cmm (157-399) 03/27/23 17:37 MPV 10.4 fL (7.4-10.4) 03/27/23 17:37 Neut % (Auto) 61.0 % 03/27/23 17:37 Lymph % (Auto) 27.1 % 03/27/23 17:37 [place] % (Auto) 7.6 % 03/27/23 17:37 Eos % (Auto) 3.3 % 03/27/23 17:37 Baso % (Auto) 0.5 % 03/27/23 17:37 Neut # (Auto) 3.54 10^3/uL (1.8-7.7) 03/27/23 17:37 Lymph # (Auto) 1.6 10^3/uL (0.8-4.8) 03/27/23 17:37 [place] # (Auto) 0.4 10^3/uL (0.2-0.9) 03/27/23 17:37 Eos # (Auto) 0.2 10^3/uL (0.0-0.8) 03/27/23 17:37 Baso # (Auto) 0.0 10^3/uL (0.0-0.1) 03/27/23 17:37 Nucleated RBC % (auto) 0 % 03/27/23 17:37 Nucleated RBCs # 0.0 /100WBC 03/27/23 17:37 PT Cancelled 03/27/23 17:37 INR Cancelled 03/27/23 17:37 APTT Cancelled 03/27/23 17:37 Sodium Cancelled 03/27/23 17:37 Potassium Cancelled 03/27/23 17:37 Chloride Cancelled 03/27/23 17:37 Carbon Dioxide Cancelled 03/27/23 17:37 Anion Gap Cancelled 03/27/23 17:37 BUN Cancelled 03/27/23 17:37 Creatinine Cancelled 03/27/23 17:37 GFR Calculation Cancelled 03/27/23 17:37 Glucose Cancelled 03/27/23 17:37 Calculated Osmolality Cancelled 03/27/23 17:37 Calcium Cancelled 03/27/23 17:37 Total Bilirubin Cancelled 03/27/23 17:37 AST Cancelled 03/27/23 17:37 ALT Cancelled 03/27/23 17:37 Alkaline Phosphatase Cancelled 03/27/23 17:37 Total Protein Cancelled 03/27/23 17:37 Albumin Cancelled 03/27/23 17:37 Globulin Cancelled 03/27/23 17:37 All radiology interpretation(s) finalized by discharge Critical Care Time Critical Care Time: Critical Care Time: Yes Total Critical Care Time: 40 Attestation: The high probability of a clinically significant, sudden or life threatening deterioration of the patient's nsgy system(s) required my full and direct attention, intervention and personal management. The critical care time is as shown. This time is in addition to time spent performing any reported procedures but includes the following: [x] Data and vital sign review and interpretation [x] Patient assessment, examination and intervention [x] Documentation [x] Medication orders and management Discharge Plan Discharge Patient Disposition: Xfer Short-Term Hosp Clinical Impression: Subarachnoid hemorrhage, Subdural hemorrhage, Skull fracture Condition: Stable Prescriptions: No Action albuterol sulfate 90 mcg/actuation aero powdr breath act w/sensor 1 inh inhalation Q4H amlodipine 10 mg tablet 10 mg PO DAILY aspirin 81 mg tablet,delayed release (DR/EC) 81 mg PO DAILY Hold Instructions: Resume on 10/05/22. cyclobenzaprine 10 mg tablet 10 mg PO TID PRN (Reason: muscle spasms) isosorbide mononitrate 30 mg tablet extended release 24 hr 30 mg PO DAILY spironolactone 25 mg tablet 50 mg PO DAILY omeprazole 20 mg capsule,delayed release(DR/EC) 20 mg PO DAILY insulin glargine [Lantus Solostar U-100 Insulin] 100 unit/mL (3 mL) insulin pen 30 unit SUBCUT DAILY Rx Instructions: Bedtime insulin aspart U-100 [Novolog FlexPen U-100 Insulin] 100 unit/mL (3 mL) insulin pen 20 unit SUBCUT TID ropinirole 1 mg Tablet 1 mg PO BEDTIME tramadol 50 mg Tablet 50 mg PO Q6H PRN (Reason: pain) Referrals: Greg Medeiros DO [Primary Care Provider] - Coding Level of Care Code ED [employer] for Cristophre Isaac
[2023-03-27] MEDS: nicardipine 20 MG/200 ML PREMIX 50 MG IV (18:49)
[2023-03-27] MEDS: factor xa, inactivated-zhzo 800 MG in empty flexible container 1 EACH, non-DEHP filter ... 180 MG IV (19:05)
--- NOTE | 2023-03-27 19:14 | PC.NURSE ---
report called to gillian
== END 2023-03-27 19:19 | disposition short-term general hospital (02) ==
PROVIDERS: Emergency Provider Emergency Medicine; PCP Electrodiagnostic Medicine
DX: S06.6XAA Traumatic subarachnoid hemorrhage with loss of consciousness status unknown, initial encounter (principal); S06.5XAA Traumatic subdural hemorrhage with loss of consciousness status unknown, initial encounter; S02.11HA Other fracture of occiput, left side, initial encounter for closed fracture; S02.0XXA Fracture of vault of skull, initial encounter for closed fracture; Z79.82 Long term (current) use of aspirin; Z79.4 Long term (current) use of insulin; I25.10 Atherosclerotic heart disease of native coronary artery without angina pectoris; E11.9 Type 2 diabetes mellitus without complications; I10 Essential (primary) hypertension; Z95.1 Presence of aortocoronary bypass graft; Z79.01 Long term (current) use of anticoagulants; W19.XXXA Unspecified fall, initial encounter
CPT/HCPCS: 70450; 85025; 93005; 96365; 99285; J7169